=== PATIENT | male | born 2000 | race Caucasian/White ===

== ENCOUNTER 2022-03-16 10:47 | Emergency (ER) | payer OTHER, SELFPAY ==
[2022-03-16 11:05] VITALS: BP 137/86; PULSE 113; RESP 18; TEMP 36.6; O2SAT 98; BMI 19.2
[2022-03-16] MEDS: Ibuprofen 600 MG TABLET PO (11:10)
== END 2022-03-16 16:36 | disposition left against medical advice (07) ==
PROVIDERS: Emergency Provider Emergency Medicine; PCP Pediatrics
DX: M54.50 Low back pain, unspecified (principal); J45.909 Unspecified asthma, uncomplicated
CPT/HCPCS: 99282; 99283

== ENCOUNTER 2022-10-09 11:30 | Emergency (ER) | payer OTHER, SELFPAY ==
--- NOTE | ~2022-10-09 | XR_ITS ---
EXAMINATION: XR CHEST CLINICAL INFORMATION: Cough. COMPARISON: 12/20/2012 chest radiographs. TECHNIQUE: 2 views of the chest were obtained. FINDINGS: No significant abnormality is noted involving the heart, lungs, mediastinum, bony thorax or soft tissues. XR/XR chest 2V IMPRESSION: No acute cardiopulmonary process.
[2022-10-09 11:33] VITALS: BP 120/62; PULSE 112; RESP 20; TEMP 36.6; O2SAT 94; BMI 20.7
--- NOTE | 2022-10-09 11:33 | ED.SOB ---
HPI - SOB/Dyspnea General Chief Complaint: Asthma <JOSE Alcala - Last Filed: 10/09/22 11:34> Stated Complaint: sob, severe asthma <JOSE Alcala - Last Filed: 10/09/22 11:34> Time Seen by Provider: 10/09/22 11:39 <JOSE Alcala - Last Filed: 10/09/22 11:34> Source: patient <JOSE Jordan Last Filed: 10/09/22 15:54> Mode of arrival: ambulatory <JOSE Jordan - Last Filed: 10/09/22 15:54> Limitations: no limitations <JOSE Jordan Last Filed: 10/09/22 15:54> History of Present Illness HPI Narrative: Patient is a 22 year old assigned male at with a history of asthma presenting to the emergency department today with a cough and feeling generally unwell. Patient states that he has been feeling unwell over the last few days and has been coughing a lot more. Patient denies any dizziness, lightheadedness, abdominal pain, fever, chills, blurry vision, double vision, loss of vision, chest pain, difficulty breathing, shortness of breath, back pain, night sweats, pain with urination, increased urinary frequency, increased urinary urgency, blood in his urine or stool, syncope or a near syncopal episode, recent trauma or falls, bowel incontinence, bladder incontinence, bowel retention, bladder retention, or any other complaints at this time. Patient states that he has been nauseous. <JOSE Jordan - Last Filed: 10/09/22 15:54> Pertinent past history: asthma <JOSE Jordan - Last Filed: 10/09/22 15:54> Onset (ago): day(s) <JOSE Jordan - Last Filed: 10/09/22 15:54> Context: recent illness <JOSE Jordan Last Filed: 10/09/22 15:54> Exacerbating factors: nothing <JOSE Jordan Last Filed: 10/09/22 15:54> Relieving factors: nothing <JOSE Jordan Last Filed: 10/09/22 15:54> Known history of: asthma <JOSE Jordan Last Filed: 10/09/22 15:54> Associated symptoms: nausea/vomiting <JOSE Jordan Last Filed: 10/09/22 15:54> Treatment prior to arrival: bronchodilator <JOSE Jordan Last Filed: 10/09/22 15:54> Related Data Home oxygen amount: none <JOSE Jordan Last Filed: 10/09/22 15:54> Home Medications: Previous Rx's Medication Instructions Recorded ondansetron 4 mg disintegrating 4 mg PO Q8H 3 days #9 tabs 10/09/22 tablet prednisone 20 mg tablet 20 mg PO DAILY 7 days #7 tabs 10/09/22 <JOSE Alcala - Last Filed: 10/09/22 11:34> Allergies/Adverse Reactions: Allergies Allergy/AdvReac Type Severity Reaction Status Date / Time No Known Allergies Allergy Unverified 04/18/20 17:17 <JOSE Alcala - Last Filed: 10/09/22 11:34> Review of Systems Constitutional: Constitutional: Reports no additional constitutional complaints, Denies chills, Denies fever(s) and Denies night sweats <JOSE Jordan Last Filed: 10/09/22 15:54> Eyes: Eyes: Reports no additional eye complaints, Denies blurry vision, Denies change in vision, Denies diplopia, Denies eye discharge, Denies loss of vision and Denies eye pain <JOSE Jordan Last Filed: 10/09/22 15:54> ENT: Denies dizziness <JOSE Jordan Last Filed: 10/09/22 15:54> Cardiovascular: Cardiovascular: Reports no additional cardiovascular complaints, Denies chest pain, Denies lightheadedness, Denies Loss of Consciousness and Denies dyspnea <JOSE Jordan Last Filed: 10/09/22 15:54> Respiratory: Respiratory: Reports no additional respiratory complaints, Reports cough, Denies dyspnea and Reports wheezing <JOSE Jordan Last Filed: 10/09/22 15:54> Gastrointestinal: Gastrointestinal: Reports no additional gastrointestinal complaints, Denies abdominal pain, Denies melena, Denies hematochezia, Denies change in bowel habits, Denies change in stool character, Reports nausea and Reports vomiting <JOSE Jordan - Last Filed: 10/09/22 15:54> Genitourinary: Genitourinary: Reports no additional male genitourinary complaints, Denies hematuria, Denies oliguria, Denies difficulty urinating, Denies dysuria, Denies urinary frequency, Denies urinary hesitancy, Denies urinary incontinence and Denies urinary urgency <JOSE Jordan - Last Filed: 10/09/22 15:54> Musculoskeletal: Musculoskeletal: Reports no additional musculoskeletal complaints, Denies numbness and Denies tingling <JOSE Jordan - Last Filed: 10/09/22 15:54> Neurologic: Denies dizziness, Denies loss of vision, Denies numbness and Denies tingling <JOSE Jordan - Last Filed: 10/09/22 15:54> Psychiatric: Psychiatric: Reports no additional psychiatric complaints <JOSE Jordan Last Filed: 10/09/22 15:54> Endocrine: Endocrine: Reports no additional endocrine complaints <JOSE Jordan - Last Filed: 10/09/22 15:54> Hematologic/Lymphatic: Hematologic/Lymphatic: Reports no additional hematologic/lymphatic complaints <JOSE Jordan Last Filed: 10/09/22 15:54> Allergic/Immunologic: Allergic/Immunologic: Reports no additional allergic/immunologic complaints and Reports wheezing <JOSE Jordan Last Filed: 10/09/22 15:54> [facility] Past Medical History Attestation statement: The following information was validated with the patient. <JOSE Jordan Last Filed: 10/09/22 15:54> Source: old records reviewed and nursing notes reviewed <JOSE Jordan Last Filed: 10/09/22 15:54> Physical Exam Vital Signs: Vital Signs: Last Vital Signs Temp 98.6 F 10/09/22 12:52 Pulse 114 H 10/09/22 14:24 Resp 15 10/09/22 14:24 BP 120/62 10/09/22 11:33 Pulse Ox 92 10/09/22 14:06 O2 Del Method 10/09/22 14:06 BMI result Body Mass Index 20.7 <JOSE Alcala - Last Filed: 10/09/22 11:34> Vital Signs: Last Vital Signs Temp 98.6 F 10/09/22 12:52 Pulse 114 H 10/09/22 14:24 Resp 15 10/09/22 14:24 BP 120/62 10/09/22 11:33 Pulse Ox 92 10/09/22 14:06 O2 Del Method 10/09/22 14:06 BMI result Body Mass Index 20.7 <JOSE Jordan - Last Filed: 10/09/22 15:54> Const: General: cooperative, no acute distress, alert and awake <JOSE Jordan - Last Filed: 10/09/22 15:54> Nutritional Appearance: well nourished <JOSE Jordan - Last Filed: 10/09/22 15:54> Orientation/consciousness: patient oriented x3 <JOSE Jordan - Last Filed: 10/09/22 15:54> Limitations: no limitations <JOSE Jordan - Last Filed: 10/09/22 15:54> HEENT: Head: Yes normal to inspection and Yes atraumatic <JOSE Jordan - Last Filed: 10/09/22 15:54> Ears: hearing grossly normal bilaterally and external ears normal <JOSE Jordan - Last Filed: 10/09/22 15:54> General nose exam: Normal external nose present, no nasal discharge noted and no epistaxis <JOSE Jordan - Last Filed: 10/09/22 15:54> Face and sinus: Yes normal facial exam, No abrasion and No laceration <JOSE Jordan - Last Filed: 10/09/22 15:54> Mouth: Normal oral and palatal mucosa present, no drooling and no muffled voice <JOSE Jordan - Last Filed: 10/09/22 15:54> Eyes: General: appearance normal, both eyes and all related structures <JOSE Jordan - Last Filed: 10/09/22 15:54> Periorbital: periorbital findings normal <JOSE Jordan - Last Filed: 10/09/22 15:54> Eyelids: Yes eyelids normal <JOSE Jordan - Last Filed: 10/09/22 15:54> Conjunctivae: conjunctivae normal <Charline Castaneda NH - Last Filed: 10/09/22 15:54> Pupils: Equal, round and reactive pupils present <Charline Castaneda NH - Last Filed: 10/09/22 15:54> EOM: EOMs intact bilaterally <Charline Castaneda NH - Last Filed: 10/09/22 15:54> Neck: Neck: Yes normal visual inspection, Yes full ROM and Yes no lymphadenopathy <Charline Castaneda NH - Last Filed: 10/09/22 15:54> Chest: Chest palpation & inspection: normal inspection of the chest <Charline Castaneda NH - Last Filed: 10/09/22 15:54> Resp: Effort & Inspection: normal respiratory effort and able to speak in complete sentences <Charline Castaneda NH - Last Filed: 10/09/22 15:54> Auscultation: wheezes throughout <Charline Castaneda NH - Last Filed: 10/09/22 15:54> Cardio: Rate: tachycardic <Charline Castaneda NH - Last Filed: 10/09/22 15:54> Rhythm: regular rhythm <Charline Castaneda NH - Last Filed: 10/09/22 15:54> GI: Inspection: Yes normal to inspection <Charline Castaneda NH - Last Filed: 10/09/22 15:54> Palpation (GI): Soft to palpation, not firm, nontender, no guarding and not rigid <Charline Castaneda NH - Last Filed: 10/09/22 15:54> Neuro: General: patient oriented x3 and moves all extremities <Charline Castaneda NH - Last Filed: 10/09/22 15:54> Cranial nerves: Yes Equal, round and reactive pupils present <Charline Castaneda NH - Last Filed: 10/09/22 15:54> Cognition (Neuro): normal cognition <Charline Castaneda NH - Last Filed: 10/09/22 15:54> Motor exam (neuro): 5/5 motor strength present throughout <Charline Castaneda NH - Last Filed: 10/09/22 15:54> Sensory Exam: Normal double simultaneous stimulation for sensation <CharlineJOSE Thompson - Last Filed: 10/09/22 15:54> Coordination: [id number] test normal <JOSE Jordan - Last Filed: 10/09/22 15:54> Extrem: General: Yes normal to inspection, Yes full ROM and Yes capillary refill normal <JOSE Jordan - Last Filed: 10/09/22 15:54> Psych: Appearance: grossly normal <JOSE Jordan - Last Filed: 10/09/22 15:54> Mental Status: mental status grossly normal <JOSE Jordan - Last Filed: 10/09/22 15:54> Affect: normal affect <JOSE Jordan - Last Filed: 10/09/22 15:54> Attitude: cooperative <JOSE Jordan - Last Filed: 10/09/22 15:54> Thought process: Normal thought process present <JOSE Jordan - Last Filed: 10/09/22 15:54> Thought content: Normal thought content present <JOSE Jordan - Last Filed: 10/09/22 15:54> Insight: Good insight present (Psych) <JOSE Jordan - Last Filed: 10/09/22 15:54> Course Course Course Narrative: RME - 22 yo M, with a history of asthma, presenting to the ER with complaints of shortness of breath since yesterday. He is a smoker. He has been using his inhalers and nebulizers at home without relief. He has been admitted in the hospital for his asthma in the past. Inspiratory wheezes but speaking in full sentences. 94% on RA. Plan - Chest x-ray and covid swab ordered. <JOSE Alcala - Last Filed: 10/09/22 11:34> Medications Administered Discontinued Medications Generic Name Dose Route Start Last Admin Trade Name Freq PRN Reason Stop Dose Admin Albuterol Sulfate 10 mg 10/09/22 11:39 10/09/22 11:51 Albuterol Sulfate (0.083%) 2.5 Mg/3 Ml Vial.Neb INHALE 10/09/22 11:40 10 mg ONCE ONE Administration Albuterol Sulfate 5 mg/ 0 mg 10/09/22 14:08 10/09/22 14:24 Ipratropium [place] 0.5 mg INHALE 10/09/22 14:09 5 each ONCE ONE Administration Sodium Chloride 1,000 mls @ 999 mls/hr 10/09/22 13:00 10/09/22 14:56 Ns IV 10/09/22 14:00 Infused .Q1H1M DOMITILA Infusion Methylprednisolone Sodium Succinate 60 mg 10/09/22 11:39 10/09/22 11:44 Methylprednisolone Sod Succ 125 Mg/2 Ml Vial IM 10/09/22 11:40 60 mg ONCE ONE Administration Ondansetron HCl 4 mg 10/09/22 14:41 10/09/22 14:56 Ondansetron Hcl 4 Mg/2 Ml Vial IVPUSH 10/09/22 14:42 4 mg ONCE ONE Administration <JOSE Alcala - Last Filed: 10/09/22 11:34> Medications Administered Discontinued Medications Generic Name Dose Route Start Last Admin Trade Name Freq PRN Reason Stop Dose Admin Albuterol Sulfate 10 mg 10/09/22 11:39 10/09/22 11:51 Albuterol Sulfate (0.083%) 2.5 Mg/3 Ml Vial.Neb INHALE 10/09/22 11:40 10 mg ONCE ONE Administration Albuterol Sulfate 5 mg/ 0 mg 10/09/22 14:08 10/09/22 14:24 Ipratropium [place] 0.5 mg INHALE 10/09/22 14:09 5 each ONCE ONE Administration Sodium Chloride 1,000 mls @ 999 mls/hr 10/09/22 13:00 10/09/22 14:56 Ns IV 10/09/22 14:00 Infused .Q1H1M DOMITILA Infusion Methylprednisolone Sodium Succinate 60 mg 10/09/22 11:39 10/09/22 11:44 Methylprednisolone Sod Succ 125 Mg/2 Ml Vial IM 10/09/22 11:40 60 mg ONCE ONE Administration Ondansetron HCl 4 mg 10/09/22 14:41 10/09/22 14:56 Ondansetron Hcl 4 Mg/2 Ml Vial IVPUSH 10/09/22 14:42 4 mg ONCE ONE Administration <JOSE Jordan - Last Filed: 10/09/22 15:54> Medical Decision Making Medical Decision Making MDM Narrative: Patient is a 22 year old assigned male at with a history of asthma presenting to the emergency department today with a cough and nausea. Patient's physical exam showed tachycardia which is likely secondary to the patient using breathing treatments at home. Patient's blood work showed a slightly elevated WBC count of 12.1. Patient was positive for Rhinovirus. Patient's EKG was unremarkable. Patient's chest x-ray showed no acute process. I explained my physical exam findings as well as all test results to the patient. I answered all questions asked by the patient. Patient received IV fluids, zofran, IM Solu-medrol, and 2 breathing treatments which he stated helped his symptoms significantly. I stressed the importance of the patient taking his medication as prescribed. I stressed the importance of the patient following up with his primary care provider. I stressed the importance of the patient returning to the emergency department immediately if his symptoms were to worsen or if he were to develop any dizziness, shortness of breath, difficulty breathing, chest pain, blurry vision, loss of vision, nausea, vomiting, abdominal pain, fever, chills, back pain, or any other complaints. Patient verbalized agreement and understanding with this treatment plan and discharge. <JOSE Jordan - Last Filed: 10/09/22 15:54> Differential Diagnosis Differential Diagnoses: The differential diagnosis associated with the presentation includes <JOSE Jordan - Last Filed: 10/09/22 15:54> asthma exacerbation, rhinovirus <JOSE Jordan - Last Filed: 10/09/22 15:54> Lab Data MDM Lab Attestation statement: I reviewed the patient's lab results. <JOSE Jordan - Last Filed: 10/09/22 15:54> Result Diagrams: 10/09/22 13:28 10/09/22 13:28 <JOSE Alcala - Last Filed: 10/09/22 11:34> Labs: Lab Results 10/09/22 10/09/22 10/09/22 Range/Units 11:42 13:01 13:28 WBC 12.1 H (4.8-10.8) X10*3/uL RBC 5.14 (4.60-5.80) X10*6/uL Hgb 15.8 (14.0-18.0) g/dl Hct 44.7 (42.0-52.0) % MCV 87.0 (80.0-98.0) fL MCH 30.7 (27.0-33.0) pg MCHC 35.3 (31.0-36.0) g/dl RDW 12.6 (11.0-16.0) % Plt Count 235 (160-400) X10*3/uL MPV 11.2 (9.4-12.4) fL Immature Gran % (Auto) 0.4 (0.0-0.4) % Neut % (Auto) 88.8 H (45-73) % Lymph % (Auto) 5.9 L (20-40) % Lewis % (Auto) 3.2 (2-11) % Eos % (Auto) 1.4 (0-4) % Baso % (Auto) 0.3 (0-2) % Lymph # (Auto) 0.7 L (1.2-4.9) X10*3/uL Lewis # (Auto) 0.4 (0.1-1.2) X10*3/uL Eos # (Auto) 0.2 (0.0-0.4) X10*3/uL Baso # (Auto) 0.0 (0.0-0.2) X10*3/uL Abs Immat Gran (auto) 0.05 H (0.00-0.03) X10*3/uL Absolute Neuts (auto) 10.8 H (2.0-8.3) x10*3/uL Absolute Nucleated RBC 0.000 (0.0-0.012) X10*3/uL Nucleated RBC % (auto) 0.0 (0.0-0.2) /100WBC D-Dimer High Sensitivty NG/ML Sodium (135-145) mmol/L Potassium (3.3-5.1) mmol/L Chloride (96-108) mmol/L Carbon Dioxide (22-29) mmol/L Anion Gap (12-20) BUN (9-16) mg/dL Creatinine (0.5-1.4) mg/dL Estim Creat Clear Calc Estimated GFR Random Glucose (60-115) mg/dL Calcium (8.4-10.2) mg/dL Magnesium (1.6-2.6) mg/dL Total Bilirubin (0.0-1.0) mg/dL AST (5-37) U/L ALT (0-40) U/L Alkaline Phosphatase (39-117) U/L Total Protein (6.5-8.0) g/dL Albumin (3.5-5.0) g/dL Respiratory Panel Schaeffer See Note Adenovirus (Rapid PCR) Not Detected (Not Detect.) B.pert (TEM-PCR) Not Detected (Not Detect.) B.parapertussis DNA PCR Not Detected (Not Detect.) C. pneumoniae DNA (PCR) Not Detected (Not Detect.) Coronavirus OC43 (PCR) Not Detected (Not Detect.) Coronavirus HKU1 (PCR) Not Detected (Not Detect.) Coronavirus 229E (PCR) Not Detected (Not Detect.) COVID-19 (BERNICE) Negative (Negative) COVID-19 Clin Com See Note Coronavirus NL63 (PCR) Not Detected (Not Detect.) Human Metapneumovir PCR Not Detected (Not Detect.) Influenza A (RT-PCR) Not Detected (Not Detect.) Influenza B (RT-PCR) Not Detected (Not Detect.) M. pneumoniae (PCR) Not Detected (Not Detect.) Parainfluenza 1 (PCR) Not Detected (Not Detect.) Parainfluenza 2 (PCR) Not Detected (Not Detect.) Parainfluenza 3 (PCR) Not Detected (Not Detect.) Parainfluenza 4 (PCR) Not Detected (Not Detect.) RSV (PCR) Not Detected (Not Detect.) Entero/Rhino (PCR) Detected A (Not Detect.) SARS-CoV-2 RNA (RT-PCR) Not Detected (Not Detect.) 10/09/22 10/09/22 Range/Units 13:28 13:28 WBC (4.8-10.8) X10*3/uL RBC (4.60-5.80) X10*6/uL Hgb (14.0-18.0) g/dl Hct (42.0-52.0) % MCV (80.0-98.0) fL MCH (27.0-33.0) pg MCHC (31.0-36.0) g/dl RDW (11.0-16.0) % Plt Count (160-400) X10*3/uL MPV (9.4-12.4) fL Immature Gran % (Auto) (0.0-0.4) % Neut % (Auto) (45-73) % Lymph % (Auto) (20-40) % Lewis % (Auto) (2-11) % Eos % (Auto) (0-4) % Baso % (Auto) (0-2) % Lymph # (Auto) (1.2-4.9) X10*3/uL Lewis # (Auto) (0.1-1.2) X10*3/uL Eos # (Auto) (0.0-0.4) X10*3/uL Baso # (Auto) (0.0-0.2) X10*3/uL Abs Immat Gran (auto) (0.00-0.03) X10*3/uL Absolute Neuts (auto) (2.0-8.3) x10*3/uL Absolute Nucleated RBC (0.0-0.012) X10*3/uL Nucleated RBC % (auto) (0.0-0.2) /100WBC D-Dimer High Sensitivty < 150 NG/ML Sodium 143 (135-145) mmol/L Potassium 3.8 (3.3-5.1) mmol/L Chloride 105 (96-108) mmol/L Carbon Dioxide 24 (22-29) mmol/L Anion Gap 18 (12-20) BUN 6 L (9-16) mg/dL Creatinine 0.85 (0.5-1.4) mg/dL Estim Creat Clear Calc 123.4 Estimated GFR > 60 Random Glucose 115 (60-115) mg/dL Calcium 10.2 (8.4-10.2) mg/dL Magnesium 1.7 (1.6-2.6) mg/dL Total Bilirubin 1.3 H (0.0-1.0) mg/dL AST 27 (5-37) U/L ALT 22 (0-40) U/L Alkaline Phosphatase 73 (39-117) U/L Total Protein 7.4 (6.5-8.0) g/dL Albumin 4.9 (3.5-5.0) g/dL Respiratory Panel Schaeffer Adenovirus (Rapid PCR) (Not Detect.) B.pert (TEM-PCR) (Not Detect.) B.parapertussis DNA PCR (Not Detect.) C. pneumoniae DNA (PCR) (Not Detect.) Coronavirus OC43 (PCR) (Not Detect.) Coronavirus HKU1 (PCR) (Not Detect.) Coronavirus 229E (PCR) (Not Detect.) COVID-19 (BERNICE) (Negative) COVID-19 Clin Com Coronavirus NL63 (PCR) (Not Detect.) Human Metapneumovir PCR (Not Detect.) Influenza A (RT-PCR) (Not Detect.) Influenza B (RT-PCR) (Not Detect.) M. pneumoniae (PCR) (Not Detect.) Parainfluenza 1 (PCR) (Not Detect.) Parainfluenza 2 (PCR) (Not Detect.) Parainfluenza 3 (PCR) (Not Detect.) Parainfluenza 4 (PCR) (Not Detect.) RSV (PCR) (Not Detect.) Entero/Rhino (PCR) (Not Detect.) SARS-CoV-2 RNA (RT-PCR) (Not Detect.) <JOSE Alcala - Last Filed: 10/09/22 11:34> Lab Results 10/09/22 10/09/22 10/09/22 Range/Units 11:42 13:01 13:28 WBC 12.1 H (4.8-10.8) X10*3/uL RBC 5.14 (4.60-5.80) X10*6/uL Hgb 15.8 (14.0-18.0) g/dl Hct 44.7 (42.0-52.0) % MCV 87.0 (80.0-98.0) fL MCH 30.7 (27.0-33.0) pg MCHC 35.3 (31.0-36.0) g/dl RDW 12.6 (11.0-16.0) % Plt Count 235 (160-400) X10*3/uL MPV 11.2 (9.4-12.4) fL Immature Gran % (Auto) 0.4 (0.0-0.4) % Neut % (Auto) 88.8 H (45-73) % Lymph % (Auto) 5.9 L (20-40) % Lewis % (Auto) 3.2 (2-11) % Eos % (Auto) 1.4 (0-4) % Baso % (Auto) 0.3 (0-2) % Lymph # (Auto) 0.7 L (1.2-4.9) X10*3/uL Lewis # (Auto) 0.4 (0.1-1.2) X10*3/uL Eos # (Auto) 0.2 (0.0-0.4) X10*3/uL Baso # (Auto) 0.0 (0.0-0.2) X10*3/uL Abs Immat Gran (auto) 0.05 H (0.00-0.03) X10*3/uL Absolute Neuts (auto) 10.8 H (2.0-8.3) x10*3/uL Absolute Nucleated RBC 0.000 (0.0-0.012) X10*3/uL Nucleated RBC % (auto) 0.0 (0.0-0.2) /100WBC D-Dimer High Sensitivty NG/ML Sodium (135-145) mmol/L Potassium (3.3-5.1) mmol/L Chloride (96-108) mmol/L Carbon Dioxide (22-29) mmol/L Anion Gap (12-20) BUN (9-16) mg/dL Creatinine (0.5-1.4) mg/dL Estim Creat Clear Calc Estimated GFR Random Glucose (60-115) mg/dL Calcium (8.4-10.2) mg/dL Magnesium (1.6-2.6) mg/dL Total Bilirubin (0.0-1.0) mg/dL AST (5-37) U/L ALT (0-40) U/L Alkaline Phosphatase (39-117) U/L Total Protein (6.5-8.0) g/dL Albumin (3.5-5.0) g/dL Respiratory Panel Schaeffer See Note Adenovirus (Rapid PCR) Not Detected (Not Detect.) B.pert (TEM-PCR) Not Detected (Not Detect.) B.parapertussis DNA PCR Not Detected (Not Detect.) C. pneumoniae DNA (PCR) Not Detected (Not Detect.) Coronavirus OC43 (PCR) Not Detected (Not Detect.) Coronavirus HKU1 (PCR) Not Detected (Not Detect.) Coronavirus 229E (PCR) Not Detected (Not Detect.) COVID-19 (BERNICE) Negative (Negative) COVID-19 Clin Com See Note Coronavirus NL63 (PCR) Not Detected (Not Detect.) Human Metapneumovir PCR Not Detected (Not Detect.) Influenza A (RT-PCR) Not Detected (Not Detect.) Influenza B (RT-PCR) Not Detected (Not Detect.) M. pneumoniae (PCR) Not Detected (Not Detect.) Parainfluenza 1 (PCR) Not Detected (Not Detect.) Parainfluenza 2 (PCR) Not Detected (Not Detect.) Parainfluenza 3 (PCR) Not Detected (Not Detect.) Parainfluenza 4 (PCR) Not Detected (Not Detect.) RSV (PCR) Not Detected (Not Detect.) Entero/Rhino (PCR) Detected A (Not Detect.) SARS-CoV-2 RNA (RT-PCR) Not Detected (Not Detect.) 10/09/22 10/09/22 Range/Units 13:28 13:28 WBC (4.8-10.8) X10*3/uL RBC (4.60-5.80) X10*6/uL Hgb (14.0-18.0) g/dl Hct (42.0-52.0) % MCV (80.0-98.0) fL MCH (27.0-33.0) pg MCHC (31.0-36.0) g/dl RDW (11.0-16.0) % Plt Count (160-400) X10*3/uL MPV (9.4-12.4) fL Immature Gran % (Auto) (0.0-0.4) % Neut % (Auto) (45-73) % Lymph % (Auto) (20-40) % Lewis % (Auto) (2-11) % Eos % (Auto) (0-4) % Baso % (Auto) (0-2) % Lymph # (Auto) (1.2-4.9) X10*3/uL Lewis # (Auto) (0.1-1.2) X10*3/uL Eos # (Auto) (0.0-0.4) X10*3/uL Baso # (Auto) (0.0-0.2) X10*3/uL Abs Immat Gran (auto) (0.00-0.03) X10*3/uL Absolute Neuts (auto) (2.0-8.3) x10*3/uL Absolute Nucleated RBC (0.0-0.012) X10*3/uL Nucleated RBC % (auto) (0.0-0.2) /100WBC D-Dimer High Sensitivty < 150 NG/ML Sodium 143 (135-145) mmol/L Potassium 3.8 (3.3-5.1) mmol/L Chloride 105 (96-108) mmol/L Carbon Dioxide 24 (22-29) mmol/L Anion Gap 18 (12-20) BUN 6 L (9-16) mg/dL Creatinine 0.85 (0.5-1.4) mg/dL Estim Creat Clear Calc 123.4 Estimated GFR > 60 Random Glucose 115 (60-115) mg/dL Calcium 10.2 (8.4-10.2) mg/dL Magnesium 1.7 (1.6-2.6) mg/dL Total Bilirubin 1.3 H (0.0-1.0) mg/dL AST 27 (5-37) U/L ALT 22 (0-40) U/L Alkaline Phosphatase 73 (39-117) U/L Total Protein 7.4 (6.5-8.0) g/dL Albumin 4.9 (3.5-5.0) g/dL Respiratory Panel Schaeffer Adenovirus (Rapid PCR) (Not Detect.) B.pert (TEM-PCR) (Not Detect.) B.parapertussis DNA PCR (Not Detect.) C. pneumoniae DNA (PCR) (Not Detect.) Coronavirus OC43 (PCR) (Not Detect.) Coronavirus HKU1 (PCR) (Not Detect.) Coronavirus 229E (PCR) (Not Detect.) COVID-19 (BERNICE) (Negative) COVID-19 Clin Com Coronavirus NL63 (PCR) (Not Detect.) Human Metapneumovir PCR (Not Detect.) Influenza A (RT-PCR) (Not Detect.) Influenza B (RT-PCR) (Not Detect.) M. pneumoniae (PCR) (Not Detect.) Parainfluenza 1 (PCR) (Not Detect.) Parainfluenza 2 (PCR) (Not Detect.) Parainfluenza 3 (PCR) (Not Detect.) Parainfluenza 4 (PCR) (Not Detect.) RSV (PCR) (Not Detect.) Entero/Rhino (PCR) (Not Detect.) SARS-CoV-2 RNA (RT-PCR) (Not Detect.) <JOSE Jordan Filed: 10/09/22 15:54> Independent Interpretation I performed an independent interpretation of an: EKG <JOSE Jordan Last Filed: 10/09/22 15:54> Interpretation: Vent. Rate: 117 BPM ? ? Atrial Rate: 117 BPM P-R Int: 128 ms? QRS Dur: 078 ms QT Int: 318 ms ? ? ? P-R-T Axes: 072 077 -67 degrees QTc Int: 443 ms ? Sinus tachycardia with occasional Premature ventricular complexes Right atrial enlargement T wave abnormality, consider inferior ischemia Abnormal ECG No previous ECGs available ? Electronically Signed By:CAL LOPEZ Dictated By: Cal Lopez MD Signed By: Electronically signed by Cal Lopez MD 10/09/22 1444 <JOSE Jordan Filed: 10/09/22 15:54> Radiology Impression Radiologist Impression: My interpretation is in agreement with the radiologist's impression of this imaging study. EXAMINATION: XR CHEST CLINICAL INFORMATION: Cough. COMPARISON: 12/20/2012 chest radiographs. TECHNIQUE: 2 views of the chest were obtained. FINDINGS: No significant abnormality is noted involving the heart, lungs, mediastinum, bony thorax or soft tissues. XR/XR chest 2V IMPRESSION: No acute cardiopulmonary process. Dictated By: Efrain Tidwell MD Signed By: Electronically signed by Efrain Tidwell MD 10/09/22 1324 <JOSE Jordan - Last Filed: 10/09/22 15:54> Critical Care Time Critical Care Time Critical Care Time: Yes <JOSE Jordan - Last Filed: 10/09/22 15:54> Total Critical Care Time: 30 <JOSE Jordan - Last Filed: 10/09/22 15:54> Attestation: I spent 30 minutes of Critical Care Time with this patient. This does not include time spent on separately reported billable procedures. <JOSE Jordan - Last Filed: 10/09/22 15:54> Discharge Plan Discharge Clinical Impression: Asthma with acute exacerbation, Rhinovirus <JOSE Alcala - Last Filed: 10/09/22 11:34> Patient Disposition: Home, Self-Care <JOSE Alcala - Last Filed: 10/09/22 11:34> Instructions: Asthma (ED) <JOSE Alcala - Last Filed: 10/09/22 11:34> Additional Instructions: Follow up with your primary care provider. Return to the emergency department immediately if your symptoms worsen or if you develop any dizziness, shortness of breath, difficulty breathing, chest pain, blurry vision, loss of vision, nausea, vomiting, abdominal pain, fever, chills, back pain, or any other complaints. <JOSE Alcala - Last Filed: 10/09/22 11:34> Prescriptions: New prednisone 20 mg tablet 20 mg PO DAILY 7 Days Qty: 7 0RF ondansetron 4 mg tablet,disintegrating 4 mg PO Q8H 3 Days Qty: 9 0RF <JOSE Alcala - Last Filed: 10/09/22 11:34> [place] [facility]] (Call to establish and follow up with a primary care provider. If you already have a primary care provider, please follow up with them. ) [facility] [facility] [place]Provider Group[place] (Call to establish and follow up with a primary care provider. If you already have a primary care provider, please follow up with them. ) [facility] [facility] [place]Provider Group] (Call to establish and follow up with a primary care provider. If you already have a primary care provider, please follow up with them. ) <JOSE Alcala - Last Filed: 10/09/22 11:34> Stand Alone Forms: Work/School Release <JOSE Alcala - Last Filed: 10/09/22 11:34> Interventions: ED Discharge Assessment Last Done: 10/09/22 15:25 <JOSE Alcala - Last Filed: 10/09/22 11:34> Discharge Date/Time: 10/09/22 15:26 <JOSE Alcala - Last Filed: 10/09/22 11:34> Print Language: Syriac <JOSE Alcala - Last Filed: 10/09/22 11:34>
[2022-10-09] MEDS: methylPREDNISolone Sod Succ 125 MG/2 ML VIAL 60 MG IM (11:44)
[2022-10-09] MEDS: Albuterol Sulfate (0.083%) 2.5 MG/3 ML VIAL.NEB 10 MG INHALE (11:51)
[2022-10-09 11:53] VITALS: PULSE 104; RESP 18; O2SAT 96
[2022-10-09 12:06] LABS: COVID-19 Test Negative (Negative); IDNOW Serial# BCCEAD1C
[2022-10-09 12:52] VITALS: TEMP 37
--- NOTE | 2022-10-09 12:52 | ECG_ITS ---
Test Reason : sob Blood Pressure : / mmHG Vent. Rate : 117 BPM Atrial Rate : 117 BPM P-R Int : 128 ms QRS Dur : 078 ms QT Int : 318 ms P-R-T Axes : 072 077 -67 degrees QTc Int : 443 ms Sinus tachycardia with occasional Premature ventricular complexes Right atrial enlargement T wave abnormality, consider inferior ischemia Abnormal ECG No previous ECGs available Referred By: Charline Castaneda Electronically Signed By:AGUSTÍN LOPEZ
[2022-10-09] MEDS: 0.9 % Sodium Chloride 1,000 ML 999 ML IV (13:29)
[2022-10-09 13:45] LABS: Basophils Percent Auto 0.3 % (0-2); Eosinophils Absolute Auto 0.2 X10*3/uL (0.0-0.4); Eosinophils Percent Auto 1.4 % (0-4); Hematocrit 44.7 % (42.0-52.0); Hemoglobin 15.8 g/dl (14.0-18.0); Imm Gran Abs Auto 0.05 X10*3/uL (0.00-0.03); Imm Gran Pct Auto 0.4 % (0.0-0.4); Lymphocytes Absolute Auto 0.7 X10*3/uL (1.2-4.9); Lymphocytes Percent Auto 5.9 % (20-40); MANUAL DIFF FLAG NO; Mean Corpuscular HGB Conc 35.3 g/dl (31.0-36.0); Mean Corpuscular Hemoglobin 30.7 pg (27.0-33.0); Mean Platelet Volume 11.2 fL (9.4-12.4); Monocytes Absolute Auto 0.4 X10*3/uL (0.1-1.2); Monocytes Percent Auto 3.2 % (2-11); Neutrophils Absolute Auto 10.8 x10*3/uL (2.0-8.3); Neutrophils Percent Auto 88.8 % (45-73); Platelet Count 235 X10*3/uL (160-400); Red Blood Count 5.14 X10*6/uL (4.60-5.80); Red Cell Distribution Width 12.6 % (11.0-16.0); White Blood Count 12.1 X10*3/uL (4.8-10.8)
[2022-10-09 14:04] LABS: D Dimer High Sensitivity < 150 NG/ML
[2022-10-09 14:06] VITALS: PULSE 116; RESP 20; O2SAT 92
[2022-10-09 14:09] LABS: Alanine Aminotransferase 22 U/L (0-40); Albumin Level 4.9 g/dL (3.5-5.0); Alkaline Phosphatase 73 U/L (39-117); Anion Gap 18 (12-20); Aspartate Amino Transferase 27 U/L (5-37); Bilirubin Total 1.3 mg/dL (0.0-1.0); Blood Urea Nitrogen 6 mg/dL (9-16); Calcium 10.2 mg/dL (8.4-10.2); Carbon Dioxide 24 mmol/L (22-29); Chloride 105 mmol/L (96-108); Creatinine Clr Calc Pharmacy 123.4; Estimated Glomerular Filt Rate > 60; Glucose Random 115 mg/dL (60-115); Magnesium 1.7 mg/dL (1.6-2.6); Potassium 3.8 mmol/L (3.3-5.1); Sodium 143 mmol/L (135-145); Total Protein 7.4 g/dL (6.5-8.0)
[2022-10-09 14:24] VITALS: PULSE 114; RESP 15; O2SAT 95
[2022-10-09 14:33] LABS: Rhino/Enterovirus PCR Detected (Not Detect.)
[2022-10-09 14:34] LABS: Adenovirus PCR Not Detected (Not Detect.); Bordetella parapertussis PCR Not Detected (Not Detect.); Bordetella pertussis PCR Not Detected (Not Detect.); Chlamydia pneumoniae PCR Not Detected (Not Detect.); Coronavirus 229E PCR Not Detected (Not Detect.); Coronavirus HKU1 PCR Not Detected (Not Detect.); Coronavirus NL63 PCR Not Detected (Not Detect.); Coronavirus OC43 PCR Not Detected (Not Detect.); Human metapneumovirus PCR Not Detected (Not Detect.); Influenza A PCR Not Detected (Not Detect.); Influenza B PCR Not Detected (Not Detect.); Mycoplasma pneumoniae PCR Not Detected (Not Detect.); Parainfluenza 1 PCR Not Detected (Not Detect.); Parainfluenza 2 PCR Not Detected (Not Detect.); Parainfluenza 3 PCR Not Detected (Not Detect.); Parainfluenza 4 PCR Not Detected (Not Detect.); RSV PCR Not Detected (Not Detect.); SARS-CoV-2 PCR Not Detected (Not Detect.)
[2022-10-09] MEDS: ondansetron HCL 4 MG/2 ML VIAL IVPUSH (14:56)
== END 2022-10-09 15:26 | disposition home or self-care (01) ==
PROVIDERS: Physician Assistant; Physician Assistant Medical; Emergency Provider Emergency Medicine
DX: J45.901 Unspecified asthma with (acute) exacerbation (principal); B34.8 Other viral infections of unspecified site; Z20.822 Contact with and (suspected) exposure to COVID-19
CPT/HCPCS: 36415; 71046; 80053; 83735; 85025; 85379; 87633; 87635; 93005; 94640; 96361; 96372; 96374; 99284; J2405; J2930

== ENCOUNTER 2022-11-09 21:21 | Emergency (ER) | payer MEDICAID, SELFPAY ==
--- NOTE | ~2022-11-09 | XR_ITS ---
EXAMINATION: XR CHEST CLINICAL INFORMATION: Asthma COMPARISON: 10/09/2022 TECHNIQUE: Frontal view of the chest was obtained. FINDINGS: Again seen is peribronchial thickening. No infiltrates, effusions, lung masses or pneumothorax is seen. XR/XR chest 1V IMPRESSION: Peribronchial thickening. No acute intrathoracic disease.
[2022-11-09 21:40] VITALS: BP 112/74; PULSE 114; RESP 20; TEMP 37.9; O2SAT 95; BMI 19.2
[2022-11-09 22:11] LABS: COVID-19 Test Negative (Negative); IDNOW Serial# 55D5AD1C; IDNOW Serial# 6674DD1D; Influenza A Negative (Negative); Influenza B2 Negative (Negative)
[2022-11-09 22:13] VITALS: PULSE 111; RESP 22; TEMP 38.1; O2SAT 95
--- NOTE | 2022-11-09 22:16 | MHC.EDTECH ---
THIS PCT JUST ASSUMED CARE OF PT ,PT WAS HOOKED UP TO [employer] ,VITALS SIGN TAKEN ,TIARA CRABTREE IS AWARE OF PT HIGH TEMP ,HIGH RESP AND HIGH HR .
[2022-11-09] MEDS: Acetaminophen 325 MG TABLET 650 MG PO (22:23)
[2022-11-09] MEDS: dexAMETHasone 2 MG TABLET 10 MG PO (22:30)
[2022-11-09 22:35] VITALS: PULSE 115; RESP 12; O2SAT 90
--- NOTE | 2022-11-09 23:01 | ED.ASTHMA ---
HPI - Asthma General Chief Complaint: Asthma Stated Complaint: asthma Time Seen by Provider: 11/09/22 22:21 Source: patient Mode of arrival: ambulatory Limitations: no limitations History of Present Illness HPI Narrative: Patient history of asthma was cleaning the garage 2 days ago since yesterday been having increased shortness of breath with wheezing feel tired did not have any medicine for her nebulizer use without much relief also patient been congested noticed to have temperature of 100.6 degrees , no other family members sick Related Data Previous Rx's Medication Instructions Recorded ondansetron 4 mg disintegrating 4 mg PO Q8H 3 days #9 tabs 10/09/22 tablet prednisone 20 mg tablet 20 mg PO DAILY 7 days #7 tabs 10/09/22 albuterol sulfate 2.5 mg/3 mL 2.5 mg (3 mL) inhalation Q4-6H PRN 11/10/22 (0.083 %) solution for nebulization shortness of breath or wheezing #90 mL albuterol sulfate 90 mcg/actuation 2 puff inhalation Q4-6H PRN 11/10/22 aerosol inhaler (ProAir HFA) shortness of breath or wheezing #8.5 grams prednisone 20 mg tablet 40 mg PO DAILY #10 tabs 11/10/22 Allergies Allergy/AdvReac Type Severity Reaction Status Date / Time No Known Allergies Allergy Verified 11/09/22 21:47 Review of Systems Review of Systems: Yes all other systems are reviewed and are negative [facility] Social History Social History Smoked in Last 30 Days: No Use of substances other than those prescribed or required for medical reasons: Yes Substance Use Type: Marijuana Substance Use Frequency: Daily Advance Directives: No Physical Exam Vital Signs: Vital Signs: Last Vital Signs Temp 99.1 F 11/09/22 23:50 Pulse 113 H 11/10/22 00:25 Resp 21 H 11/10/22 00:25 BP 102/45 L 11/09/22 23:55 Pulse Ox 96 11/09/22 23:50 O2 Del Method Room Air 11/09/22 23:50 BMI result Body Mass Index 19.2 Appearance: Alert. Oriented X3. No acute distress. Eyes: PERRLA, No Nystagmus ENT: Pharynx normal. Oral Mucosa moist Neck: Normal inspection. Neck supple. CVS: Normal heart rate and rhythm. Pulses normal. Respiratory: More respiratory distress. Equal air entry bilateral, bilateral decreased air entry with wheezing no crackles Abdomen: Soft and nontender. Bowel sounds are present, no mass palpable, no CVA tenderness Skin: Skin warm and dry. Normal skin color. Normal skin turgor. Extremities: No lower extremity edema. No calf tenderness Neuro: Oriented X 3. Medications Administered Discontinued Medications Generic Name Dose Route Start Last Admin Trade Name Ines PRN Reason Stop Dose Admin Acetaminophen 650 mg 11/09/22 22:20 11/09/22 22:23 Acetaminophen 325 Mg Tablet PO 11/09/22 22:21 650 mg ONCE ONE Administration Albuterol Sulfate 5 mg 11/10/22 00:05 11/10/22 00:25 Albuterol Sulfate (0.083%) 2.5 Mg/3 Ml Vial.Neb INHALE 11/10/22 00:06 5 mg ONCE ONE Administration Albuterol Sulfate 7.5 mg/ 0 mg 11/09/22 22:22 11/09/22 22:31 Albuterol/Ipratropium 3 ml INHALE 11/09/22 22:23 1 each ONCE ONE Administration Dexamethasone 10 mg 11/09/22 22:22 11/09/22 22:30 Dexamethasone 2 Mg Tablet PO 11/09/22 22:23 10 mg ONCE ONE Administration Sodium Chloride 1,000 mls @ 999 mls/hr 11/09/22 22:48 11/10/22 00:34 Ns IV 11/09/22 23:48 Infused .Q1H1M ONE Infusion Magnesium Sulfate 2 gm in 50 mls @ 100 mls/hr 11/09/22 22:48 11/10/22 00:34 Magnesium Sulfate/H2o IV 11/09/22 23:17 Infused ONCE ONE Infusion Medical Decision Making Medical Decision Making [facility] Narrative: Patient feeling much better now after nebulizing treatment IV steroids and magnesium, will discharge patient home Lab Data [facility] Lab Attestation statement: I reviewed the patient's lab results. 11/09/22 23:07 11/09/22 23:07 Labs: Lab Results 11/09/22 11/09/22 11/09/22 Range/Units 21:47 21:47 23:07 WBC 9.2 (4.8-10.8) X10*3/uL RBC 4.87 (4.60-5.80) X10*6/uL Hgb 14.4 (14.0-18.0) g/dl Hct 41.7 L (42.0-52.0) % MCV 85.6 (80.0-98.0) fL MCH 29.6 (27.0-33.0) pg MCHC 34.5 (31.0-36.0) g/dl RDW 12.7 (11.0-16.0) % Plt Count 160 D (160-400) X10*3/uL MPV 11.1 (9.4-12.4) fL Immature Gran % (Auto) 0.2 (0.0-0.4) % Neut % (Auto) 70.7 (45-73) % Lymph % (Auto) 15.5 L (20-40) % [place] % (Auto) 7.2 (2-11) % Eos % (Auto) 6.0 H (0-4) % Baso % (Auto) 0.4 (0-2) % Lymph # (Auto) 1.4 (1.2-4.9) X10*3/uL [place] # (Auto) 0.7 (0.1-1.2) X10*3/uL Eos # (Auto) 0.6 H (0.0-0.4) X10*3/uL Baso # (Auto) 0.0 (0.0-0.2) X10*3/uL Abs Immat Gran (auto) 0.02 (0.00-0.03) X10*3/uL Absolute Neuts (auto) 6.5 (2.0-8.3) x10*3/uL Absolute Nucleated RBC 0.000 (0.0-0.012) X10*3/uL Nucleated RBC % (auto) 0.0 (0.0-0.2) /100WBC Sodium (135-145) mmol/L Potassium (3.3-5.1) mmol/L Chloride (96-108) mmol/L Carbon Dioxide (22-29) mmol/L Anion Gap (12-20) BUN (9-16) mg/dL Creatinine (0.5-1.4) mg/dL Estim Creat Clear Calc Estimated GFR Random Glucose (60-115) mg/dL Calcium (8.4-10.2) mg/dL Total Bilirubin (0.0-1.0) mg/dL AST (5-37) U/L ALT (0-40) U/L Alkaline Phosphatase (39-117) U/L Total Protein (6.5-8.0) g/dL Albumin (3.5-5.0) g/dL COVID-19 (BERNICE) Negative (Negative) COVID-19 Clin Com See Note Influenza Type A (NICOLAS) Negative (Negative) Influenza Type A (PCR) (Negative) Influenza Type B (NICOLAS) Negative (Negative) Influenza Type B (PCR) (Negative) Influenza A & B Note See Note RSV RNA Qual (PCR) (Negative) SARS-CoV-2 RNA (RT-PCR) (Negative) 11/09/22 11/09/22 Range/Units 23:07 23:07 WBC (4.8-10.8) X10*3/uL RBC (4.60-5.80) X10*6/uL Hgb (14.0-18.0) g/dl Hct (42.0-52.0) % MCV (80.0-98.0) fL MCH (27.0-33.0) pg MCHC (31.0-36.0) g/dl RDW (11.0-16.0) % Plt Count (160-400) X10*3/uL MPV (9.4-12.4) fL Immature Gran % (Auto) (0.0-0.4) % Neut % (Auto) (45-73) % Lymph % (Auto) (20-40) % [place] % (Auto) (2-11) % Eos % (Auto) (0-4) % Baso % (Auto) (0-2) % Lymph # (Auto) (1.2-4.9) X10*3/uL [place] # (Auto) (0.1-1.2) X10*3/uL Eos # (Auto) (0.0-0.4) X10*3/uL Baso # (Auto) (0.0-0.2) X10*3/uL Abs Immat Gran (auto) (0.00-0.03) X10*3/uL Absolute Neuts (auto) (2.0-8.3) x10*3/uL Absolute Nucleated RBC (0.0-0.012) X10*3/uL Nucleated RBC % (auto) (0.0-0.2) /100WBC Sodium 142 (135-145) mmol/L Potassium 3.2 L (3.3-5.1) mmol/L Chloride 106 (96-108) mmol/L Carbon Dioxide 24 (22-29) mmol/L Anion Gap 15 (12-20) BUN 7 L (9-16) mg/dL Creatinine 0.84 (0.5-1.4) mg/dL Estim Creat Clear Calc 116.0 Estimated GFR > 60 Random Glucose 156 H (60-115) mg/dL Calcium 9.6 (8.4-10.2) mg/dL Total Bilirubin 0.9 (0.0-1.0) mg/dL AST 28 (5-37) U/L ALT 33 (0-40) U/L Alkaline Phosphatase 61 (39-117) U/L Total Protein 6.8 (6.5-8.0) g/dL Albumin 4.6 (3.5-5.0) g/dL COVID-19 (BERNICE) (Negative) COVID-19 Clin Com Influenza Type A (NICOLAS) (Negative) Influenza Type A (PCR) NEGATIVE (Negative) Influenza Type B (NICOLAS) (Negative) Influenza Type B (PCR) NEGATIVE (Negative) Influenza A & B Note RSV RNA Qual (PCR) NEGATIVE (Negative) SARS-CoV-2 RNA (RT-PCR) NEGATIVE (Negative) Discharge Plan Discharge Clinical Impression: Asthma with acute exacerbation Patient Disposition: Home, Self-Care Instructions: Asthma (ED) Additional Instructions: Use albuterol inhaler/nebulizer treatment every 4 hours as needed Prednisone as prescribed Follow-up with PCP if not better Prescriptions: New albuterol sulfate 2.5 mg /3 mL (0.083 %) solution for nebulization 2.5 mg inhalation Q4-6H PRN (Reason: shortness of breath or wheezing) Qty: 90 0RF prednisone 20 mg tablet 40 mg PO DAILY Qty: 10 0RF albuterol sulfate [ProAir HFA] 90 mcg/actuation HFA aerosol inhaler 2 puff inhalation Q4-6H PRN (Reason: shortness of breath or wheezing) Qty: 8.5 2RF No Action prednisone 20 mg tablet 20 mg PO DAILY 7 Days Qty: 7 0RF ondansetron 4 mg tablet,disintegrating 4 mg PO Q8H 3 Days Qty: 9 0RF Interventions: ED Discharge Assessment Last Done: 11/10/22 01:21 Discharge Date/Time: 11/10/22 01:21
[2022-11-09] MEDS: 0.9 % Sodium Chloride 1,000 ML 999 ML IV (23:13)
[2022-11-09] MEDS: Magnesium Sulfate/H2O 2 GM/50 ML PIGGYBACK IV (23:13)
[2022-11-09 23:15] LABS: MANUAL DIFF FLAG NO
[2022-11-09 23:16] LABS: Basophils Percent Auto 0.4 % (0-2); Eosinophils Absolute Auto 0.6 X10*3/uL (0.0-0.4); Hematocrit 41.7 % (42.0-52.0); Hemoglobin 14.4 g/dl (14.0-18.0); Imm Gran Abs Auto 0.02 X10*3/uL (0.00-0.03); Imm Gran Pct Auto 0.2 % (0.0-0.4); Lymphocytes Absolute Auto 1.4 X10*3/uL (1.2-4.9); Lymphocytes Percent Auto 15.5 % (20-40); Mean Corpuscular HGB Conc 34.5 g/dl (31.0-36.0); Mean Corpuscular Hemoglobin 29.6 pg (27.0-33.0); Mean Corpuscular Volume 85.6 fL (80.0-98.0); Mean Platelet Volume 11.1 fL (9.4-12.4); Monocytes Absolute Auto 0.7 X10*3/uL (0.1-1.2); Monocytes Percent Auto 7.2 % (2-11); Neutrophils Absolute Auto 6.5 x10*3/uL (2.0-8.3); Neutrophils Percent Auto 70.7 % (45-73); Platelet Count 160 X10*3/uL (160-400); Red Blood Count 4.87 X10*6/uL (4.60-5.80); Red Cell Distribution Width 12.7 % (11.0-16.0); White Blood Count 9.2 X10*3/uL (4.8-10.8)
--- NOTE | 2022-11-09 23:23 | PC.NURSE ---
Took over care from TIARA Valdovinos AT 23:00pm, pt a&o, no sign of respiratory distress, pt able to speak in full sentences, breathing treatment completed. medicated per SEP, Iv placed, labs collected and sent. Will continue to monitor.
[2022-11-09 23:30] LABS: Alanine Aminotransferase 33 U/L (0-40); Albumin Level 4.6 g/dL (3.5-5.0); Alkaline Phosphatase 61 U/L (39-117); Anion Gap 15 (12-20); Aspartate Amino Transferase 28 U/L (5-37); Bilirubin Total 0.9 mg/dL (0.0-1.0); Blood Urea Nitrogen 7 mg/dL (9-16); Calcium 9.6 mg/dL (8.4-10.2); Carbon Dioxide 24 mmol/L (22-29); Chloride 106 mmol/L (96-108); Estimated Glomerular Filt Rate > 60; Glucose Random 156 mg/dL (60-115); Potassium 3.2 mmol/L (3.3-5.1); Sodium 142 mmol/L (135-145); Total Protein 6.8 g/dL (6.5-8.0)
[2022-11-09 23:48] LABS: Influenza A PCR NEGATIVE (Negative); Influenza B PCR NEGATIVE (Negative); Resp Syncy Virus RNA Qual PCR NEGATIVE (Negative); SARS COV2 PCR INHOUSE NEGATIVE (Negative)
[2022-11-09 23:50] VITALS: BP 101/47; PULSE 122; RESP 21; TEMP 37.3; O2SAT 96
[2022-11-09 23:55] VITALS: BP 102/45
--- NOTE | 2022-11-10 00:20 | PC.NURSE ---
provider into assess pt, pt is able to speak in full sentences, no sign of respiratory distress. Will medicated per Mar.
[2022-11-10 00:25] VITALS: PULSE 113; RESP 21; O2SAT 95
[2022-11-10] MEDS: Albuterol Sulfate (0.083%) 2.5 MG/3 ML VIAL.NEB 5 MG INHALE (00:25)
--- NOTE | 2022-11-10 00:35 | PC.NURSE ---
second respiratory treatment started.
--- NOTE | 2022-11-10 01:14 | PC.NURSE ---
Reviewed discharge instruction with pt, pt verbalized understanding.
== END 2022-11-10 01:21 | disposition home or self-care (01) ==
PROVIDERS: Emergency Provider Internal Medicine
DX: J45.901 Unspecified asthma with (acute) exacerbation (principal); Z20.822 Contact with and (suspected) exposure to COVID-19; Z20.828 Contact with and (suspected) exposure to other viral communicable diseases; Z79.899 Other long term (current) drug therapy
CPT/HCPCS: 0241U; 71045; 80053; 85025; 87502; 87635; 96365; 99284; 99285; J3475; J8540

== ENCOUNTER 2023-05-22 16:27 | Emergency (ER) | payer MEDICAID, SELFPAY ==
[2023-05-22 16:37] VITALS: BP 138/97; PULSE 94; RESP 18; TEMP 36.8; O2SAT 98; BMI 19.9
--- NOTE | 2023-05-22 16:40 | ED.GENADULT ---
HPI - General Adult General Chief complaint: Nausea/Vomiting/Diarrhea Stated complaint: Weakness, fatigue, no appetite Related Data Previous Rx's Medication Instructions Recorded ondansetron 4 mg disintegrating 4 mg PO Q8H 3 days #9 tabs 10/09/22 tablet prednisone 20 mg tablet 20 mg PO DAILY 7 days #7 tabs 10/09/22 albuterol sulfate 2.5 mg/3 mL 2.5 mg (3 mL) inhalation Q4-6H PRN 11/10/22 (0.083 %) solution for nebulization shortness of breath or wheezing #90 mL albuterol sulfate 90 mcg/actuation 2 puff inhalation Q4-6H PRN 11/10/22 aerosol inhaler (ProAir HFA) shortness of breath or wheezing #8.5 grams prednisone 20 mg tablet 40 mg (2 x 20 mg) PO DAILY #10 tabs 11/10/22 Allergies Allergy/AdvReac Type Severity Reaction Status Date / Time No Known Allergies Allergy Verified 05/22/23 16:42 [facility] Social History Social History Substance Use Type: Marijuana Advance Directives: No Advance Directives Information Provided: Yes Physical Exam ED Vital Signs: Vital Signs - 24 hr 05/22/23 16:37 Temperature 98.2 F Pulse Rate 94 Respiratory Rate 18 Blood Pressure 138/97 H Pulse Oximetry 98 Oxygen Delivery Method Room Air BMI result Body Mass Index 19.9 Course Course Course Narrative: This is a rapid medical exam: Additional HPI, ROS, PE not included below will be deferred to primary provider. Patient is a 23-year-old male presenting to the emergency department with complaint of weakness, lightheadedness, nausea, and vomiting bile for 2 days. 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 Denies fevers. Denies cough or shortness of breath. Denies chest pain. Plan: Swab for flu, Covid, basic labs Medical Decision Making Lab Data 05/22/23 16:54 05/22/23 16:54 Labs: Lab Results 05/22/23 Range/Units 16:54 WBC 7.1 (4.8-10.8) X10*3/uL RBC 5.55 (4.60-5.80) X10*6/uL Hgb 17.0 (14.0-18.0) g/dl Hct 48.6 (42.0-52.0) % MCV 87.6 (80.0-98.0) fL MCH 30.6 (27.0-33.0) pg MCHC 35.0 (31.0-36.0) g/dl RDW 12.7 (11.0-16.0) % Plt Count 194 (160-400) X10*3/uL MPV 10.6 (9.4-12.4) fL Immature Gran % (Auto) 0.1 (0.0-0.4) % Neut % (Auto) 72.0 (45-73) % Lymph % (Auto) 17.3 L (20-40) % [place] % (Auto) 10.1 (2-11) % Eos % (Auto) 0.1 (0-4) % Baso % (Auto) 0.4 (0-2) % Lymph # (Auto) 1.2 (1.2-4.9) X10*3/uL [place] # (Auto) 0.7 (0.1-1.2) X10*3/uL Eos # (Auto) 0.0 (0.0-0.4) X10*3/uL Baso # (Auto) 0.0 (0.0-0.2) X10*3/uL Abs Immat Gran (auto) 0.01 (0.00-0.03) X10*3/uL Absolute Neuts (auto) 5.1 (2.0-8.3) x10*3/uL Absolute Nucleated RBC 0.000 (0.0-0.012) X10*3/uL Nucleated RBC % (auto) 0.0 (0.0-0.2) /100WBC Sodium 134 L (135-145) mmol/L Potassium 4.1 D (3.3-5.1) mmol/L Chloride 101 (96-108) mmol/L Carbon Dioxide 19 L (22-29) mmol/L Anion Gap 18 (12-20) BUN 12 (9-16) mg/dL Creatinine 0.93 (0.5-1.4) mg/dL Estim Creat Clear Calc 107.9 Estimated GFR > 60 Random Glucose 81 (60-115) mg/dL Calcium 10.0 (8.4-10.2) mg/dL COVID-19 (BERNICE) Negative (Negative) COVID-19 Clin Com See Note Influenza Type A (NICOLAS) Negative (Negative) Influenza Type B (NICOLAS) Negative (Negative) Influenza A & B Note See Note Discharge Plan Discharge Clinical Impression: Nausea & vomiting Patient Disposition: Left W/O Completing Treatment Prescriptions: No Action prednisone 20 mg tablet 20 mg PO DAILY 7 Days Qty: 7 0RF ondansetron 4 mg tablet,disintegrating 4 mg PO Q8H 3 Days Qty: 9 0RF albuterol sulfate 2.5 mg /3 mL (0.083 %) solution for nebulization 2.5 mg inhalation Q4-6H PRN (Reason: shortness of breath or wheezing) Qty: 90 0RF prednisone 20 mg tablet 40 mg PO DAILY Qty: 10 0RF albuterol sulfate [ProAir HFA] 90 mcg/actuation HFA aerosol inhaler 2 puff inhalation Q4-6H PRN (Reason: shortness of breath or wheezing) Qty: 8.5 2RF Discharge Date/Time: 05/22/23 19:52
[2023-05-22 16:58] LABS: MANUAL DIFF FLAG NO
[2023-05-22 17:02] LABS: Basophils Percent Auto 0.4 % (0-2); Eosinophils Percent Auto 0.1 % (0-4); Hematocrit 48.6 % (42.0-52.0); Imm Gran Abs Auto 0.01 X10*3/uL (0.00-0.03); Imm Gran Pct Auto 0.1 % (0.0-0.4); Lymphocytes Absolute Auto 1.2 X10*3/uL (1.2-4.9); Lymphocytes Percent Auto 17.3 % (20-40); Mean Corpuscular Hemoglobin 30.6 pg (27.0-33.0); Mean Corpuscular Volume 87.6 fL (80.0-98.0); Mean Platelet Volume 10.6 fL (9.4-12.4); Monocytes Absolute Auto 0.7 X10*3/uL (0.1-1.2); Monocytes Percent Auto 10.1 % (2-11); Neutrophils Absolute Auto 5.1 x10*3/uL (2.0-8.3); Platelet Count 194 X10*3/uL (160-400); Red Blood Count 5.55 X10*6/uL (4.60-5.80); Red Cell Distribution Width 12.7 % (11.0-16.0); White Blood Count 7.1 X10*3/uL (4.8-10.8)
[2023-05-22 17:15] LABS: Anion Gap 18 (12-20); Blood Urea Nitrogen 12 mg/dL (9-16); Carbon Dioxide 19 mmol/L (22-29); Chloride 101 mmol/L (96-108); Creatinine Clr Calc Pharmacy 107.9; Estimated Glomerular Filt Rate > 60; Glucose Random 81 mg/dL (60-115); Potassium 4.1 mmol/L (3.3-5.1); Sodium 134 mmol/L (135-145)
[2023-05-22 17:16] LABS: IDNOW Serial# BCCEAD1C; Influenza A Negative (Negative); Influenza B2 Negative (Negative)
[2023-05-22 17:17] LABS: COVID-19 Test Negative (Negative); IDNOW Serial# 08D9AD1C
== END 2023-05-22 19:52 | disposition left against medical advice (07) ==
PROVIDERS: Registered Nurse Emergency; Emergency Provider Emergency Medicine
DX: R11.2 Nausea with vomiting, unspecified (principal); F12.90 Cannabis use, unspecified, uncomplicated; Z79.899 Other long term (current) drug therapy; Z11.52 Encounter for screening for COVID-19
CPT/HCPCS: 36415; 80048; 85025; 87502; 87635; 99281; 99283

== ENCOUNTER 2023-05-30 11:26 | Emergency (ER) | payer MEDICAID, SELFPAY ==
[2023-05-30 11:29] VITALS: BP 107/56; PULSE 76; RESP 19; TEMP 36.6; O2SAT 99; BMI 19.2
--- NOTE | 2023-05-30 11:54 | ED_ITS ---
HPI - General Adult General Chief complaint: Nausea/Vomiting/Diarrhea Stated complaint: vomiting Time Seen by Provider: 05/30/23 14:43 Source: patient Mode of arrival: ambulatory History of Present Illness HPI narrative: 23-year-old male who presents with nausea and vomiting without diarrhea and states that it primarily occurs in the morning but he is also smoking cannabis in the evenings. Last use of cannabis was last night and patient states he is actually feeling better at this time and that he can eat and drink it just 1st thing in the morning. Related Data Previous Rx's Medication Instructions Recorded ondansetron 4 mg disintegrating 4 mg PO Q8H 3 days #9 tabs 10/09/22 tablet prednisone 20 mg tablet 20 mg PO DAILY 7 days #7 tabs 10/09/22 albuterol sulfate 2.5 mg/3 mL 2.5 mg (3 mL) inhalation Q4-6H PRN 11/10/22 (0.083 %) solution for nebulization shortness of breath or wheezing #90 mL albuterol sulfate 90 mcg/actuation 2 puff inhalation Q4-6H PRN 11/10/22 aerosol inhaler (ProAir HFA) shortness of breath or wheezing #8.5 grams prednisone 20 mg tablet 40 mg (2 x 20 mg) PO DAILY #10 tabs 11/10/22 ondansetron HCl 4 mg tablet 4 mg PO Q8H PRN nausea and 05/30/23 vomiting 4 days #10 tabs Allergies Allergy/AdvReac Type Severity Reaction Status Date / Time No Known Allergies Allergy Verified 05/30/23 11:29 Review of Systems 2 Review of Systems: Pertinent positives and negatives as stated in the [facility] Past Medical History Source: nursing notes reviewed Social History Social History Smoked in Last 30 Days: No Use of substances other than those prescribed or required for medical reasons: Yes Substance Use Type: Marijuana Advance Directives: No Advance Directives Information Provided: Yes Physical Exam ED Vital Signs: Vital Signs - 24 hr 05/30/23 11:29 05/30/23 14:38 Temperature 98 F 98.0 F Pulse Rate 76 63 Respiratory Rate 19 16 Blood Pressure 107/56 L 111/72 Pulse Oximetry 99 100 Oxygen Delivery Method Room Air Room Air BMI result Body Mass Index 19.2 VITAL SIGNS: Reviewed. GENERAL: Well developed, well nourished, in no acute distress. HEAD: Normocephalic/atraumatic EYES: PERRLA, EOMI EARS: Ext canals without abnormality NOSE: Nares patent bilateral OROPHARYNX: no oral lesions noted, posterior pharynx clear NECK: Supple, no adenopathy LUNGS: Normal breath sounds. No adventitious sounds or accessory muscle use. SpO2<100> CARDIOVASCULAR: Regular rate and rhythm without noted murmurs ABDOMEN: Soft, non-tender, non-distended with bowel sounds. MUSCULOSKELETAL: No tenderness, deformities, or effusions noted on gross inspection. EXTREMITIES: No cyanosis, clubbing or edema. SKIN: Inspection of the skin reveals no rashes NEUROLOGIC: Alert and oriented x 4. Strength and sensation to light touch were grossly intact x 4. Course Course Course Narrative: This is an RME: Additional HPI, ROS, PE not included below will be deferred to primary provider. 23 year old male presnts w/ abd pain intermittent in nature X 1 week with nausea and vomiting every morning. Smokes marijuana daily. Plan- labs, urine Medications Administered Discontinued Medications Generic Name Dose Route Start Last Admin Trade Name Freq PRN Reason Stop Dose Admin Diphenhydramine HCl 25 mg 05/30/23 14:44 05/30/23 15:03 Diphenhydramine Hcl 50 Mg/Ml Vial IVPUSH 05/30/23 14:45 25 mg ONCE ONE Administration Ketorolac Tromethamine 15 mg 05/30/23 14:44 05/30/23 15:03 Ketorolac Tromethamine 30 Mg/Ml Vial IVPUSH 05/30/23 14:45 15 mg ONCE ONE Administration Metoclopramide HCl 10 mg 05/30/23 14:44 05/30/23 15:03 Metoclopramide Hcl 10 Mg/2 Ml Vial IVPUSH 05/30/23 14:45 10 mg ONCE ONE Administration Ondansetron HCl 4 mg 05/30/23 14:44 05/30/23 15:03 Ondansetron Hcl 4 Mg/2 Ml Vial IVPUSH 05/30/23 14:45 4 mg ONCE ONE Administration Medical Decision Making Medical Decision Making MDM Narrative: 23-year-old male with history and clinical presentation consistent with cyclical vomiting secondary cannabis use, patient is afebrile and was recently tested for COVID-19 on 05/22 and at that time was negative. A concerns for intra-abdominal infection or urinary infection. I reviewed all investigations and hematologic indices are negative for leukocytosis or left shift, no anemia or thrombocytopenia. Chemistry indices are negative for BELLA and there is no electrolyte or liver enzyme abnormalities. Urinalysis is negative for UTI or hematuria and UDS confirms cannabis. I discussed all results with the patient at bedside and also discussed reducing the amount of cannabis use that he is engaged in an effort to control his cyclical vomiting. Patient is otherwise tolerating oral intake after receiving ketorolac/Benadryl/Reglan/Zofran. He is otherwise discharged home in stable condition. Differential Diagnosis Differential Diagnoses: The differential diagnosis associated with the presentation includes Please see the discussion above Admission/Observation Consideration of admission/observation: Escalation of care including admission/observation considered Please see the discussion above Lab Data MDM Lab Attestation statement: I reviewed the patient's lab results. Please see the discussion above 05/30/23 12:06 05/30/23 12:06 Labs: Lab Results 05/30/23 05/30/23 Range/Units 12:06 12:14 WBC 9.6 (4.8-10.8) X10*3/uL RBC 5.16 (4.60-5.80) X10*6/uL Hgb 15.8 (14.0-18.0) g/dl Hct 46.6 (42.0-52.0) % MCV 90.3 (80.0-98.0) fL MCH 30.6 (27.0-33.0) pg MCHC 33.9 (31.0-36.0) g/dl RDW 12.8 (11.0-16.0) % Plt Count 286 D (160-400) X10*3/uL MPV 10.9 (9.4-12.4) fL Immature Gran % (Auto) 0.5 H (0.0-0.4) % Neut % (Auto) 61.3 (45-73) % Lymph % (Auto) 24.5 (20-40) % [place] % (Auto) 7.7 (2-11) % Eos % (Auto) 5.1 H (0-4) % Baso % (Auto) 0.9 (0-2) % Lymph # (Auto) 2.3 (1.2-4.9) X10*3/uL [place] # (Auto) 0.7 (0.1-1.2) X10*3/uL Eos # (Auto) 0.5 H (0.0-0.4) X10*3/uL Baso # (Auto) 0.1 (0.0-0.2) X10*3/uL Abs Immat Gran (auto) 0.05 H (0.00-0.03) X10*3/uL Absolute Neuts (auto) 5.9 (2.0-8.3) x10*3/uL Absolute Nucleated RBC 0.000 (0.0-0.012) X10*3/uL Nucleated RBC % (auto) 0.0 (0.0-0.2) /100WBC Sodium 139 (135-145) mmol/L Potassium 4.4 (3.3-5.1) mmol/L Chloride 105 (96-108) mmol/L Carbon Dioxide 28 (22-29) mmol/L Anion Gap 10 L (12-20) BUN 9 (9-16) mg/dL Creatinine 0.79 (0.5-1.4) mg/dL Estim Creat Clear Calc 122.3 Estimated GFR > 60 Random Glucose 93 (60-115) mg/dL Calcium 9.9 (8.4-10.2) mg/dL Total Bilirubin 0.4 (0.0-1.0) mg/dL Direct Bilirubin 0.1 (0.0-0.5) mg/dL AST 30 (5-37) U/L ALT 25 (0-40) U/L Alkaline Phosphatase 53 (39-117) U/L Total Protein 7.4 (6.5-8.0) g/dL Albumin 4.6 (3.5-5.0) g/dL Lipase 62 (8-78) U/L Urine Color Yellow Urine Appearance Clear Urine pH 7.0 (5.0-9.0) Ur Specific [place] 1.020 (1.005-1.025) Urine Protein Negative (Neg-Trace) mg/dL Urine Glucose (UA) Negative (Negative) mg/dL Urine Ketones Negative (Negative) mg/dL Urine Blood Negative (Negative) Urine Nitrite Negative (Negative) Ur Leukocyte Esterase Negative (Negative) Urine Opiates Screen Not Detected (Not Detect) Urine Fentanyl Screen Not Detected (Not Detect) Ur Barbiturates Screen Not Detected (Not Detect) Ur Phencyclidine Scrn Not Detected (Not Detect) Ur Amphetamines Screen Not Detected (Not Detect) U Benzodiazepines Scrn Not Detected (Not Detect) Urine Cocaine Screen Not Detected (Not Detect) U Marijuana (THC) Screen POSITIVE H (Not Detect) Chronic Conditions Patient?s care impacted by: Other Cyclical vomiting Discharge Plan Discharge Clinical Impression: Cyclical vomiting, Cannabis use disorder Patient Disposition: Home, Self-Care Instructions: Cannabis Abuse (ED), Cyclic Vomiting Syndrome (ED) Additional Instructions: 1. Resume all home medications as prescribed. 2. Continue to hydrate especially with water. Attempts to scale back on your cannabis use to help control any nausea and vomiting that you are experiencing. Return to the ER for any worsening symptoms. Prescriptions: New ondansetron HCl 4 mg tablet 4 mg PO Q8H PRN (Reason: nausea and vomiting) 4 Days Qty: 10 0RF No Action prednisone 20 mg tablet 20 mg PO DAILY 7 Days Qty: 7 0RF ondansetron 4 mg tablet,disintegrating 4 mg PO Q8H 3 Days Qty: 9 0RF albuterol sulfate 2.5 mg /3 mL (0.083 %) solution for nebulization 2.5 mg inhalation Q4-6H PRN (Reason: shortness of breath or wheezing) Qty: 90 0RF prednisone 20 mg tablet 40 mg PO DAILY Qty: 10 0RF albuterol sulfate [ProAir HFA] 90 mcg/actuation HFA aerosol inhaler 2 puff inhalation Q4-6H PRN (Reason: shortness of breath or wheezing) Qty: 8.5 2RF
[2023-05-30 12:32] LABS: MANUAL DIFF FLAG NO
[2023-05-30 12:35] LABS: Basophils Absolute Auto 0.1 X10*3/uL (0.0-0.2); Basophils Percent Auto 0.9 % (0-2); Eosinophils Absolute Auto 0.5 X10*3/uL (0.0-0.4); Eosinophils Percent Auto 5.1 % (0-4); Hematocrit 46.6 % (42.0-52.0); Hemoglobin 15.8 g/dl (14.0-18.0); Imm Gran Abs Auto 0.05 X10*3/uL (0.00-0.03); Imm Gran Pct Auto 0.5 % (0.0-0.4); Lymphocytes Absolute Auto 2.3 X10*3/uL (1.2-4.9); Lymphocytes Percent Auto 24.5 % (20-40); Mean Corpuscular HGB Conc 33.9 g/dl (31.0-36.0); Mean Corpuscular Hemoglobin 30.6 pg (27.0-33.0); Mean Corpuscular Volume 90.3 fL (80.0-98.0); Mean Platelet Volume 10.9 fL (9.4-12.4); Monocytes Absolute Auto 0.7 X10*3/uL (0.1-1.2); Monocytes Percent Auto 7.7 % (2-11); Neutrophils Absolute Auto 5.9 x10*3/uL (2.0-8.3); Neutrophils Percent Auto 61.3 % (45-73); Platelet Count 286 X10*3/uL (160-400); Red Blood Count 5.16 X10*6/uL (4.60-5.80); Red Cell Distribution Width 12.8 % (11.0-16.0); White Blood Count 9.6 X10*3/uL (4.8-10.8)
[2023-05-30 12:37] LABS: Appearance Urine Clear; Color Urine Yellow; Glucose Urine UA Negative (Negative); Leukocyte Esterase Urine Negative (Negative); Nitrite Urine Negative (Negative); Urine Blood Negative (Negative); Urine Ketones Negative (Negative); Urine Protein Negative (Neg-Trace)
[2023-05-30 12:41] LABS: Amphetamine Screen Urine Not Detected (Not Detect); Barbiturates, Urine Not Detected (Not Detect); Benzodiazepines Screen Urine Not Detected (Not Detect); Cannabinoid Screen Urine POSITIVE (Not Detect); Cocaine Screen Urine Not Detected (Not Detect); Fentanyl, urine Not Detected (Not Detect); Opiate Screen Urine Not Detected (Not Detect); Phencyclidine Screen Urine Not Detected (Not Detect)
[2023-05-30 12:50] LABS: Alanine Aminotransferase 25 U/L (0-40); Albumin Level 4.6 g/dL (3.5-5.0); Alkaline Phosphatase 53 U/L (39-117); Anion Gap 10 (12-20); Aspartate Amino Transferase 30 U/L (5-37); Bilirubin Direct 0.1 mg/dL (0.0-0.5); Bilirubin Total 0.4 mg/dL (0.0-1.0); Blood Urea Nitrogen 9 mg/dL (9-16); Calcium 9.9 mg/dL (8.4-10.2); Carbon Dioxide 28 mmol/L (22-29); Chloride 105 mmol/L (96-108); Creatinine Clr Calc Pharmacy 122.3; Estimated Glomerular Filt Rate > 60; Glucose Random 93 mg/dL (60-115); Lipase 62 U/L (8-78); Potassium 4.4 mmol/L (3.3-5.1); Sodium 139 mmol/L (135-145); Total Protein 7.4 g/dL (6.5-8.0)
[2023-05-30 14:38] VITALS: BP 111/72; PULSE 63; RESP 16; TEMP 36.7; O2SAT 100
[2023-05-30] MEDS: Metoclopramide HCl 10 MG/2 ML VIAL IVPUSH (15:03)
[2023-05-30] MEDS: ondansetron HCL 4 MG/2 ML VIAL IVPUSH (15:03)
[2023-05-30] MEDS: Ketorolac Tromethamine 30 MG/ML VIAL 15 MG IVPUSH (15:03)
[2023-05-30] MEDS: diphenhydrAMINE HCL 50 MG/ML VIAL 25 MG IVPUSH (15:03)
--- NOTE | 2023-05-30 15:09 | PC.NURSE ---
20gIV placed in left AC w/o complications - medications administered per provider order. will reassess pain level shortly. call smith placed within reach.
--- NOTE | 2023-05-30 15:28 | PC.NURSE ---
PO CHALLENGE GIVEN
--- NOTE | 2023-05-30 15:41 | PC.NURSE ---
pt verbalized pain decreased post medication administration. pt provided w/ discharge paperwork.
== END 2023-05-30 15:42 | disposition home or self-care (01) ==
PROVIDERS: Physician Assistant; Emergency Provider Student in an Organized Health Care Education/Training Program
DX: F12.19 Cannabis abuse with unspecified cannabis-induced disorder (principal); R11.2 Nausea with vomiting, unspecified; R19.7 Diarrhea, unspecified; Z79.899 Other long term (current) drug therapy
CPT/HCPCS: 36415; 80048; 80076; 80307; 81003; 83690; 85025; 96374; 96375; 99284; J1200; J1885; J2405; J2765

== ENCOUNTER 2023-06-06 20:34 | Emergency (ER) | payer MEDICAID, SELFPAY ==
--- NOTE | ~2023-06-06 | XR_ITS ---
EXAMINATION: XR KNEE, LEFT CLINICAL INFORMATION: Fall off bed COMPARISON: None available. TECHNIQUE: AP, lateral, and both oblique views of the left knee. FINDINGS: No evidence of acute fracture or malalignment. Limited assessment of joint spaces in the absence of weightbearing views. No suprapatellar joint effusion. Soft tissues unremarkable. . XR/XR knee LT 3V IMPRESSION: Unremarkable left knee radiographs.
[2023-06-06 20:48] VITALS: BP 125/72; PULSE 100; RESP 18; TEMP 37.3; O2SAT 96; BMI 19.9
--- NOTE | 2023-06-06 20:49 | ED_ITS ---
HPI - Extremity Injury (Lower) General Chief Complaint: Extremity Injury, Lower Stated Complaint: LT knee injury Time Seen by Provider: 06/06/23 21:31 Source: patient Mode of arrival: ambulatory Limitations: no limitations History of Present Illness HPI Narrative: 23 yold male presents to the ED for left knee pain. patient states he hit knee on the edge of the bed when he jumped up thinking something fell unto his daughter. Patient denies any other trauma. Related Data Previous Rx's Medication Instructions Recorded ondansetron 4 mg disintegrating 4 mg PO Q8H 3 days #9 tabs 10/09/22 tablet prednisone 20 mg tablet 20 mg PO DAILY 7 days #7 tabs 10/09/22 albuterol sulfate 2.5 mg/3 mL 2.5 mg (3 mL) inhalation Q4-6H PRN 11/10/22 (0.083 %) solution for nebulization shortness of breath or wheezing #90 mL albuterol sulfate 90 mcg/actuation 2 puff inhalation Q4-6H PRN 11/10/22 aerosol inhaler (ProAir HFA) shortness of breath or wheezing #8.5 grams prednisone 20 mg tablet 40 mg (2 x 20 mg) PO DAILY #10 tabs 11/10/22 ondansetron HCl 4 mg tablet 4 mg PO Q8H PRN nausea and 05/30/23 vomiting 4 days #10 tabs naproxen 500 mg tablet 500 mg PO BID PRN pain 7 days #14 06/06/23 tabs Allergies Allergy/AdvReac Type Severity Reaction Status Date / Time Seasonal Allergies Allergy Nasal Verified 06/06/23 20:54 congestion Review of Systems 2 Review of Systems: left knee pain Yes all other systems are reviewed and are negative PMFSH Social History Social History Substance Use Type: Marijuana Advance Directives: No Advance Directives Information Provided: No Physical Exam 2 Vital Signs: Vital Signs: Last Vital Signs Temp 99.1 F 06/06/23 20:48 Pulse 100 06/06/23 20:48 Resp 18 06/06/23 20:48 BP 125/72 06/06/23 20:48 Pulse Ox 96 06/06/23 20:48 O2 Del Method Room Air 06/06/23 20:48 BMI result Body Mass Index 19.9 Const: General: cooperative, healthy appearing, comfortable, no acute distress, well developed, alert, awake and Physically active O rientation/consciousness: oriented to person, oriented to place, oriented to time and patient oriented x3 HEENT: Head: Yes normal to inspection, Yes No palpable skull fracture present, Yes normocephalic, Yes atraumatic and No abrasion Ears: hearing grossly normal bilaterally, external ears normal, TM's normal bilaterally, TM normal on the right, TM normal on the left, EAC's normal, mastoids normal and no periauricular adenopathy Throat: Yes posterior oropharynx normal, Yes tonsils normal and Yes uvula midline Eyes: General: appearance normal, both eyes and all related structures Neck: Neck: Yes normal visual inspection, Yes full ROM, Yes no lymphadenopathy, Yes no meningeal signs, Yes trachea midline, Yes supple, No anterior neck swelling and No tender Chest: Chest palpation & inspection: normal inspection of the chest and normal palpation of entire chest wall Resp: Effort & Inspection: normal respiratory effort and able to speak in complete sentences Auscultation: clear to auscultation bilaterally Cardio: Jugular venous distension: no JVD Heart sounds: S1 normal heart sound present and S2 normal heart sound present GI: Inspection: Yes normal to inspection and No abdominal wall ecchymosis P alpation (GI): Soft to palpation, not firm, nontender, no guarding and not rigid : General: No CVA tenderness and Yes no CVA tenderness Back/Spine/Pelvis: Back: no CVA tenderness, No CVA tenderness and No back tenderness Skin: General skin exam: no rashes or lesions noted, elasticity normal and turgor normal Neuro: General: oriented to person, oriented to place, oriented to time, patient oriented x3, gait normal, tone normal, moves all extremities, Normal light touch and pain sensation, no meningeal signs, no focal motor deficits, CN's II-XI intact bilaterally and normal sensation to monofilament Extrem: General: Yes normal to inspection, Yes full ROM and Yes capillary refill normal Knee images: 1. tenderness on palpation. positive for skin flap/avulsion. no sutures needed. Bleedin controlled. motor exam intact, but limited due to pain. neuro/vacular exam is intact. Psych: Appearance: grossly normal, well kempt and not disheveled Course Course Course Narrative: RME: 23yo M c/o L knee pain & injury s/p jumping out of bed [employer] after hearing and bang. Admits to hitting knee on dresser corner. Admits is UTD on vaccinations, but unknown last tetanus Ambulating w/lmping gait. R knee with avulsion/flap laceration-needs repair XRs ordered Full HPI, ROS and PE to be performed by primary ED provider. Medications Administered Discontinued Medications Generic Name Dose Route Start Last Admin Trade Name Ines PRN Reason Stop Dose Admin Ibuprofen 800 mg 06/06/23 21:53 06/06/23 22:21 Ibuprofen 800 Mg Tablet PO 06/06/23 21:54 800 mg ONCE ONE Administration Medical Decision Making Medical Decision Making MDM Narrative: 23 yold male presents to the ED for left knee pain/laceratoin after hitting knee on edge of bed. patient denies any other trauma. patient states uptodate with tetanus. Knee xray normal and negative for fracture. no laceration reparied needed for avlsion/flap. wound cleaned and wrapped. Differential Diagnosis Differential Diagnoses: The differential diagnosis associated with the presentation includes (knee fracture, knee disclocation, joint effusions, laceration) Admission/Observation Consideration of admission/observation: Escalation of care including admission/observation considered Independent Interpretation I performed an independent interpretation of an: Plain X-Ray Radiology Impression Discussion of test interpretation with radiology: I have reviewed the radiologist's reading. Independent Historian Clinical information obtained from an independent historian. History obtained from or confirmed by: Spouse External Record Review External record reviewed: Other (prior visits) Prescription Management I considered prescription management with: Pain Medication Discharge Plan Discharge Clinical Impression: Contusion of knee Patient Disposition: Home, Self-Care Instructions: Contusion in Adults (ED), Laceration Without Closure (ED) Additional Instructions: You will need follow-up with primary care provider. If pain does not improve you may need MRI. Return to ED for any swelling, redness, pus discharge, foul odor, severe pain, stiffness, or any other concerning symptoms. Prescriptions: New naproxen 500 mg tablet 500 mg PO BID PRN (Reason: pain) 7 Days Qty: 14 0RF No Action prednisone 20 mg tablet 20 mg PO DAILY 7 Days Qty: 7 0RF ondansetron 4 mg tablet,disintegrating 4 mg PO Q8H 3 Days Qty: 9 0RF albuterol sulfate 2.5 mg /3 mL (0.083 %) solution for nebulization 2.5 mg inhalation Q4-6H PRN (Reason: shortness of breath or wheezing) Qty: 90 0RF prednisone 20 mg tablet 40 mg PO DAILY Qty: 10 0RF albuterol sulfate [ProAir HFA] 90 mcg/actuation HFA aerosol inhaler 2 puff inhalation Q4-6H PRN (Reason: shortness of breath or wheezing) Qty: 8.5 2RF ondansetron HCl 4 mg tablet 4 mg PO Q8H PRN (Reason: nausea and vomiting) 4 Days Qty: 10 0RF Stand Alone Forms: Work/School Release Interventions: ED Discharge Assessment Last Done: 06/06/23 22:46 Discharge Date/Time: 06/06/23 22:46 Print Language: Prydeinig
[2023-06-06] MEDS: Ibuprofen 800 MG TABLET PO (22:21)
== END 2023-06-06 22:46 | disposition home or self-care (01) ==
PROVIDERS: Emergency Provider Emergency Medicine
DX: S80.02XA Contusion of left knee, initial encounter (principal); W22.09XA Striking against other stationary object, initial encounter; Y93.89 Activity, other specified; Y92.003 Bedroom of unspecified non-institutional (private) residence as the place of occurrence of the external cause; Y99.9 Unspecified external cause status; M25.562 Pain in left knee
CPT/HCPCS: 73562; 99283

== ENCOUNTER 2024-12-20 13:56 | Emergency (ER) | payer OTHER, SELFPAY ==
--- NOTE | ~2024-12-20 | CT_ITS ---
CLINICAL HISTORY: SOB, chest tightness, mass on R side CXR CT angiography chest with contrast. 3D Postprocessing. Comparison: CR/TN/SR - XR CHEST 2V - 12/20/24 14:19 EDT CR/SR - XR CHEST 1V - 11/09/22 22:05 EDT Findings: The heart is normal size. RV/LV ratio is normal. The thoracic aorta is normal caliber. No pulmonary artery filling defects. Enlarged right hilar lymph node, likely reactive. Visualized thyroid gland is within normal limits. Right upper lobe consolidation. No pleural effusion or pneumothorax. The visualized upper abdomen is unremarkable. The bones are intact. IMPRESSION: 1. Right upper lobe pneumonia. 2. No pulmonary embolus. This document has been electronically signed by: Guero Mcqueen MD on 12/20/2024 19:05:18
--- NOTE | ~2024-12-20 | XR_ITS ---
EXAMINATION: XR CHEST CLINICAL INFORMATION: R rib pain COMPARISON: 11/09/2022. TECHNIQUE: 2 views of the chest were obtained. FINDINGS: The cardiac, hilar, and mediastinal contours are normal. There is an oval masslike consolidation in the right upper lobe distribution measuring approximately 4.3 x 3.6 cm. The left lung is clear. There are no effusions. There is no pneumothorax. There is no focal osseous or soft tissue abnormality. XR/XR chest 2V IMPRESSION: 1. Oval masslike consolidation in the right upper lobe, most likely pneumonia in this age group although mass not excluded given the appearance. Recommend radiographic follow-up to ensure resolution after treatment. 2. No effusions. Electronically signed by: Flakito Way MD 12/20/2024 02:36 PM EDT
[2024-12-20 14:05] VITALS: BP 114/74; PULSE 92; RESP 18; TEMP 36.8; O2SAT 99; BMI 17.7
--- NOTE | 2024-12-20 14:05 | ED.CHESTPAIN ---
HPI - Chest Pain General Chief Complaint: General Medical Stated Complaint: R Rib Pain, Back Pain, Fever, Trouble Breathing Time Seen by Provider: 12/20/24 14:53 Source: patient Mode of arrival: ambulatory Limitations: no limitations History of Present Illness ED Provider: Osito Brannon PA-C HPI narrative: 24 yo male with PMHx of asthma presents to the ED due to 5 days of cough with green sputum and right-sided chest tightness. Patient states he began to feel ?sick? on Wednesday (12/15) with subjective fever, chills, sweats, nausea, cough with green sputum production. He states yesterday (12/19) he began to feel right-sided chest tightness that is exacerbated by deep inspiration and coughing. He reports that all of his symptoms have resolved with exception of the right-sided chest tightness and cough. He denies recent travel, or sick contacts. He denies chest pain, shortness of breath, hemoptysis, current nausea/vomiting, diarrhea, headache. MD complaint: chest discomfort Pertinent past history: asthma Onset (ago): day(s) () Timing of current episode: still present Prior episodes: No Pain location: right chest Pain radiation: none Severity: moderate Quality: tightness and sharp Relieving factors: rest Exacerbating factors: inspiration and other (cough) Associated symptoms: cough Treatment prior to arrival: none Related Data Previous Rx's ?Medication ?Instructions ?Recorded ondansetron 4 mg disintegrating 4 mg PO Q8H 3 days #9 tabs 10/09/22 tablet prednisone 20 mg tablet 20 mg PO DAILY 7 days #7 tabs 10/09/22 albuterol sulfate 2.5 mg/3 mL 2.5 mg (3 mL) inhalation Q4-6H PRN 11/10/22 (0.083 %) solution for nebulization shortness of breath or wheezing #90 mL albuterol sulfate 90 mcg/actuation 2 puff inhalation Q4-6H PRN 11/10/22 aerosol inhaler (ProAir HFA) shortness of breath or wheezing #8.5 grams prednisone 20 mg tablet 40 mg (2 x 20 mg) PO DAILY #10 tabs 11/10/22 ondansetron HCl 4 mg tablet 4 mg PO Q8H PRN nausea and 05/30/23 vomiting 4 days #10 tabs naproxen 500 mg tablet 500 mg PO BID PRN pain 7 days #14 06/06/23 tabs amoxicillin 875 mg-potassium 1 tab PO BID #20 tabs 12/20/24 clavulanate 125 mg tablet doxycycline hyclate 100 mg tablet 100 mg PO BID #20 tabs 12/20/24 Allergies Allergy/AdvReac Type Severity Reaction Status Date / Time Seasonal Allergies Allergy Nasal Verified 12/20/24 14:09 congestion Review of Systems Review of Systems: CONST: Positive for fever, body aches and chills. HENT: Negative for neck pain/stiffness, congestion, sore throat, swelling. Positive headache EYES: Negative for discharge/pain or vision changes. RESP: Positive for cough with green mucus production. Negaive for hemoptysis and shortness of breath. CV: Positive R chest tightness. Negative difficulty breathing, palpitations. ABD: Negative pain, nausea, vomiting. : Negative increase frequency, dysuria, blood in urine or stool. MUSC: Negative for muscle aches, edema. SKIN: Negative rash, lesions/sores. NEURO: Negative headache, dizziness, weakness. Yes all other systems are reviewed and are negative FORMERLY [facility], [facility] Past Medical History Attestation statement: The following information was validated with the patient. Source: old records reviewed and nursing notes reviewed Social History Social History Alcohol intake: former Smoked in Last 30 Days: No Substance Use Type: Marijuana Advance Directives: No Advance Directives Information Provided: No Do you have a plan to hurt others: No Plan Physical Exam Vital Signs: Vital Signs: Last Vital Signs Temp 99 F 12/20/24 19:45 Pulse 78 12/20/24 19:45 Resp 16 12/20/24 19:45 BP 111/65 12/20/24 19:45 Pulse Ox 97 12/20/24 19:45 O2 Del Method Room Air 12/20/24 19:45 BMI result Body Mass Index 17.7 Const: General: cooperative, healthy appearing, comfortable and no acute distress; No in distress or lethargic Nutritional Appearance: thin Orientation/consciousness: patient oriented x3 and No lethargic Limitations: no limitations HEENT: Head: Yes normal to inspection and Yes normocephalic Ears: hearing grossly normal bilaterally Face and sinus: Yes face symmetric Mouth: Normal oral and palatal mucosa present and moist mucous membranes Eyes: General: appearance normal, both eyes and all related structures Conjunctivae: conjunctivae normal Sclerae: sclerae normal Pupils: Equal, round and reactive pupils present EOM: EOMs intact bilaterally Neck: Neck: Yes normal visual inspection, Yes full ROM, Yes no lymphadenopathy, Yes no meningeal signs and Yes supple Chest: Chest palpation & inspection: normal inspection of the chest Resp: Effort & Inspection: normal respiratory effort, able to speak in complete sentences, no audible wheezes, no paradoxical thoraco-abdom movements, no respiratory distress, no retractions, no segmental paradox chest wall movement, no tracheal deviation, no tripod positioning, no use of accessory muscles, No prolonged expiratory phase and symmetric chest movement Auscultation: clear to auscultation bilaterally, no crackles, no rales, no rhonchi, no wheezes, breath sounds present and No rub present Cardio: Jugular venous distension: no JVD Rate: regular rate Rhythm: regular rhythm Heart sounds: S1 normal heart sound present and S2 normal heart sound present Back/Spine/Pelvis: Cervical Spine: cervical ROM normal Thoracic/Lumbar Spine: thoracic and lumbar spine normal to inspection Skin: General skin exam: no rashes or lesions noted Neuro: General: patient oriented x3 and no meningeal signs Cranial nerves: Yes Equal, round and reactive pupils present Extrem: General: Yes normal to inspection and Yes full ROM Course Course Course Narrative: This is a Rapid Medical Exam performed in triage by Hellen Black PA-C. Full HPI, ROS and PE to be performed by primary ED provider. 24 yo M presenting to the ED c/o fever, chills x few days, and right sided back/rib pain x last night worse w/deep breathing and coughing/moving. +SOB.denies pedal edema, travel, cigarette smoking or vaping PE: R upper back reproducible rib/MSK pain. Talking in complete sentences, nontoxic appearing. No CVAT Plan: EKG, labs, viral testing, UA, CXR Reevaluation(s) Reevaluation #1: 12/20/2024 DR. Wood's progress note: CTA of the chest shows no pulmonary embolism but you right upper lobe pneumonia likely community acquired, patient declined night sweat or weight loss, no recent travel out of the country, was born [place] TB is unfavorable diagnosis. Will start the patient on Augmentin and doxycycline. . VSS Time: 19:23 Medications Administered Discontinued Medications Generic Name Dose Route Start Last Admin Trade Name Ines PRN Reason Stop Dose Admin Amoxicillin/Clavulanate Potassium 875 mg 12/20/24 19:25 12/20/24 19:38 Amoxicillin/Potassium Clav 875 Mg Tablet PO 12/20/24 19:26 875 mg ONCE ONE Administration Doxycycline Monohydrate 100 mg 12/20/24 19:25 12/20/24 19:38 Doxycycline Monohydrate 100 Mg Capsule PO 12/20/24 19:26 100 mg ONCE ONE Administration Iohexol 100 ml 12/20/24 17:56 12/20/24 17:57 Iohexol 350 Mg/Ml 100 Ml Infus..Btl IV 12/20/24 17:57 65 ml ONCE ONE Administration Medical Decision Making Medical Decision Making MDM Narrative: 24 yo male with PMHx of asthma presents to the ED due to 5 days of cough with green sputum and right-sided chest tightness. VSS, in no acute distress, non toxic appearing. On physical exam lungs clear to auscultation B/L without diminished breath sounds, inspiratory or expiratory wheeze, no accessory muscle use, no cyanosis, tachypnea, or tachycardia. EKG without ST elevation/depression, or T-wave abnormalities, troponin WNL. Labs reveal increased WBC, otherwise unremarkable. Viral serology negative. Two-view chest x-ray reveals oval mass like consolidation in the right upper lobe most likely pneumonia, but mass is not excluded given the appearance. No pneumothorax, no effusion. Will order CTA to R/O PE and evaluate presence of mass on CXR. 17:20- T spot ordered to R/O TB, this is less likely as patient was born in the [place] and has not had recent travel. Still awaiting CTA results Patient signed out to my attending, Dr. Wood who will resume care. Differential Diagnosis Differential Diagnoses: The differential diagnosis associated with the presentation includes Pneumothorax Pulmonary embolism Pulmonary effusion Pneumonia Bronchitis Viral illness Admission/Observation Consideration of admission/observation: Escalation of care including admission/observation considered Lab Data [facility] Lab Attestation statement: I reviewed the patient's lab results. 12/20/24 14:33 12/20/24 14:32 Labs: Lab Results 12/20/24 12/20/24 Range/Units 14:32 14:33 WBC 11.7 H (4.8-10.8) X10*3/uL RBC 4.82 (4.60-5.80) X10*6/uL Hgb 14.8 (14.0-18.0) g/dl Hct 41.4 L (42.0-52.0) % MCV 85.9 (80.0-98.0) fL MCH 30.7 (27.0-33.0) pg MCHC 35.7 (31.0-36.0) g/dl RDW 12.0 (11.0-16.0) % Plt Count 284 (160-400) X10*3/uL MPV 9.7 (9.4-12.4) fL Immature Gran % (Auto) 0.4 (0.0-0.4) % Neut % (Auto) 75.4 H (45-73) % Lymph % (Auto) 15.2 L (20-40) % Geary % (Auto) 8.3 (2-11) % Eos % (Auto) 0.3 (0-4) % Baso % (Auto) 0.4 (0-2) % Lymph # (Auto) 1.8 (1.2-4.9) X10*3/uL Geary # (Auto) 1.0 (0.1-1.2) X10*3/uL Eos # (Auto) 0.0 (0.0-0.4) X10*3/uL Baso # (Auto) 0.1 (0.0-0.2) X10*3/uL Abs Immat Gran (auto) 0.05 H (0.00-0.03) X10*3/uL Absolute Neuts (auto) 8.8 H (2.0-8.3) x10*3/uL Absolute Nucleated RBC 0.000 (0.0-0.012) X10*3/uL Nucleated RBC % (auto) 0.0 (0.0-0.2) /100WBC PT 17.0 H (10.9-12.4) SEC INR 1.5 H (0.9-1.1) Sodium 136 (135-145) mmol/L Potassium 3.5 (3.3-5.1) mmol/L Chloride 99 (96-108) mmol/L Carbon Dioxide 28 (22-29) mmol/L Anion Gap 13 (12-20) BUN 8 L (9-16) mg/dL Creatinine 0.72 (0.5-1.4) mg/dL Estim Creat Clear Calc 123.0 Estimated GFR > 60 Random Glucose 81 (60-115) mg/dL Calcium 9.3 D (8.4-10.2) mg/dL Magnesium 2.0 (1.6-2.6) mg/dL Total Bilirubin 0.9 (0.0-1.0) mg/dL Direct Bilirubin 0.4 (0.0-0.5) mg/dL AST 44 H (5-37) U/L ALT 32 (0-40) U/L Alkaline Phosphatase 86 (39-117) U/L Troponin I High Sens < 2.7 (<3.5-35.0) ng/L Total Protein 8.2 H (6.5-8.0) g/dL Albumin 4.4 (3.5-5.0) g/dL Influenza Type A (PCR) NEGATIVE (Negative) Influenza Type B (PCR) NEGATIVE (Negative) RSV RNA Qual (PCR) NEGATIVE (Negative) SARS-CoV-2 RNA (RT-PCR) NEGATIVE (Negative) Attestation Attending Attestation: I was personally present and available for consultation in the ED and independently examined this patient and performed the components of the E&M independently. I have reviewed everything on the chart that is available and agree with the documentation provided by the MAG including discussion about the assessment, treatment plan and discussion. Based on medical record the care appears appropriate. Faustino Landrum MD [facility] Emergency Medicine Discharge Plan Discharge Clinical Impression: Pneumonia Patient Disposition: Home, Self-Care Instructions: Community Acquired Pneumonia (ED) Prescriptions: New amoxicillin-pot clavulanate 875-125 mg tablet 1 tab PO BID Qty: 20 0RF doxycycline hyclate 100 mg tablet 100 mg PO BID Qty: 20 0RF No Action prednisone 20 mg tablet 20 mg PO DAILY 7 Days Qty: 7 0RF ondansetron 4 mg tablet,disintegrating 4 mg PO Q8H 3 Days Qty: 9 0RF albuterol sulfate 2.5 mg /3 mL (0.083 %) solution for nebulization 2.5 mg inhalation Q4-6H PRN (Reason: shortness of breath or wheezing) Qty: 90 0RF prednisone 20 mg tablet 40 mg PO DAILY Qty: 10 0RF albuterol sulfate [ProAir HFA] 90 mcg/actuation HFA aerosol inhaler 2 puff inhalation Q4-6H PRN (Reason: shortness of breath or wheezing) Qty: 8.5 2RF ondansetron HCl 4 mg tablet 4 mg PO Q8H PRN (Reason: nausea and vomiting) 4 Days Qty: 10 0RF naproxen 500 mg tablet 500 mg PO BID PRN (Reason: pain) 7 Days Qty: 14 0RF Interventions: ED Discharge Assessment Last Done: 12/20/24 19:45 Discharge Date/Time: 12/20/24 19:46 Print Language: Arabic
--- NOTE | 2024-12-20 14:09 | ECG_ITS ---
Test Reason : CHEST PAIN Blood Pressure : */* mmHG Vent. Rate : 82 BPM Atrial Rate : 82 BPM P-R Int : 130 ms QRS Dur : 76 ms QT Int : 330 ms P-R-T Axes : 49 69 40 degrees QTcB Int : 385 ms Normal sinus rhythm Normal ECG When compared with ECG of 09-Oct-2022 13:04, No significant changes seen Referred By: Hellen Black Electronically Signed By: Williams Warner
[2024-12-20 14:37] LABS: MANUAL DIFF FLAG NO
[2024-12-20 14:39] LABS: Basophils Absolute Auto 0.1 X10*3/uL (0.0-0.2); Basophils Percent Auto 0.4 % (0-2); Eosinophils Percent Auto 0.3 % (0-4); Hematocrit 41.4 % (42.0-52.0); Hemoglobin 14.8 g/dl (14.0-18.0); Imm Gran Abs Auto 0.05 X10*3/uL (0.00-0.03); Imm Gran Pct Auto 0.4 % (0.0-0.4); Lymphocytes Absolute Auto 1.8 X10*3/uL (1.2-4.9); Lymphocytes Percent Auto 15.2 % (20-40); Mean Corpuscular HGB Conc 35.7 g/dl (31.0-36.0); Mean Corpuscular Hemoglobin 30.7 pg (27.0-33.0); Mean Corpuscular Volume 85.9 fL (80.0-98.0); Mean Platelet Volume 9.7 fL (9.4-12.4); Monocytes Percent Auto 8.3 % (2-11); Neutrophils Absolute Auto 8.8 x10*3/uL (2.0-8.3); Neutrophils Percent Auto 75.4 % (45-73); Platelet Count 284 X10*3/uL (160-400); Red Blood Count 4.82 X10*6/uL (4.60-5.80); White Blood Count 11.7 X10*3/uL (4.8-10.8)
[2024-12-20 14:45] LABS: INTERNATIONAL NORM RATIO 1.5 (0.9-1.1)
[2024-12-20 15:01] LABS: Alanine Aminotransferase 32 U/L (0-40); Albumin Level 4.4 g/dL (3.5-5.0); Alkaline Phosphatase 86 U/L (39-117); Anion Gap 13 (12-20); Aspartate Amino Transferase 44 U/L (5-37); Bilirubin Direct 0.4 mg/dL (0.0-0.5); Bilirubin Total 0.9 mg/dL (0.0-1.0); Blood Urea Nitrogen 8 mg/dL (9-16); Calcium 9.3 mg/dL (8.4-10.2); Carbon Dioxide 28 mmol/L (22-29); Chloride 99 mmol/L (96-108); Estimated Glomerular Filt Rate > 60; Glucose Random 81 mg/dL (60-115); Potassium 3.5 mmol/L (3.3-5.1); Sodium 136 mmol/L (135-145); Total Protein 8.2 g/dL (6.5-8.0)
[2024-12-20 15:06] LABS: Troponin-I High Sensitivity < 2.7 ng/L (<3.5-35.0)
[2024-12-20 15:14] LABS: Influenza A PCR NEGATIVE (Negative); Influenza B PCR NEGATIVE (Negative); Resp Syncy Virus RNA Qual PCR NEGATIVE (Negative); SARS COV2 PCR INHOUSE NEGATIVE (Negative)
--- OUTSIDE RECORDS SUMMARY | 2024-12-20 15:20 | XMS_ITS | Clinical Summary ---
Author Organization [facility] Address [address] [place] [address] Care Team Providers Care Administrative Appeals Tribunal Member Name Role Phone aR Escobar Primary Care Provider [phone] Source Comments PLEASE NOTE, if this patient is a minor, it may be UNLAWFUL to discuss sensitive information that is contained in these records (such as FAMILY PLANNING, MENTAL HEALTH or SUBSTANCE ABUSE) with the minor patient's parent or other person without the patient's specific authorization.[facility] Allergies Active Allergy Reactions Criticality Noted Date Comments Dust 10/05/2019 Grass Pollen 10/05/2019 Mold 10/05/2019 Pollen Extracts 10/05/2019 Medications albuterol sulfate (PROVENTIL) 2.5 mg /3 mL (0.083 %) nebulizer solutionIndicati ons:Mild intermittent asthma without complication (HHS-HCC) INHALE 1 VIAL BY NEB EVERY 4 HOURS NEEDED 0 Active loratadine (CLARITIN) 10 mg tabletIndication s:Seasonal allergic rhinitis due to pollen Take 10 mg by mouth 8 Active albuterol (PROVENTIL) 2.5 mg /3 mL (0.083 %) nebulizer solution Take 3 mL by nebulization every 4 (four) hours as needed for wheezing 3 mL 11 3 Active albuterol HFA (VENTOLIN HFA) 90 mcg/actuation inhalerIndicatio ns:Mild intermittent asthma without complication (HHS-HCC) Inhale 2 Puffs into the lungs every 4 (four) hours as needed for shortness of breath or wheezing 36 g 11 3 Active valACYclovir (VALTREX) 1 gram tabletIndication s:Angular cheilitis Take 1 Tablet by mouth 2 (two) times daily for 10 daysTake 1,000 mg by mouth 2 (two) times daily for 10 days 20 Tablet 1 4 Active valACYclovir (VALTREX) 1 gram tabletIndication s:Angular cheilitis,Cold sore Take 1 Tablet by mouth 2 (two) times daily 180 Tablet 3 4 025 Active nystatin (MYCOSTATIN) 100,000 unit/gram creamIndications :Angular cheilitis Apply topically 2 (two) times daily 15 g 1 4 Active acyclovir (ZOVIRAX) 5 % ointmentIndicati ons:Angular cheilitis,Cold sore Apply topically 2 (two) times daily 30 g 2 4 Active Active Problems Problem Noted Date Diagnosed Date Behavior problem in child 04/28/2013 Mild intermittent asthma without complication (H HS-HCC) 11/12/2009 Seasonal allergic rhinitis 11/12/2009 Immunizations Immunization Administration Dates Next Due DTAP (DAPTACEL),5 PERTUSSIS ANTIGENS ,04/11/2002,2001,05/12,2001 Flu, Multi Dose 0.5 ML 09/07/2014 Flu, Preservative Free 10/05/2019,2015,04/21/2016,04/17,04/28/2013 HEP B, PED/ADOL 2001,2001,2001 HPV 9 (Gardasil) 04/17/2015 HPV, QUADRIVALENT 09/07/2014,04/28/2013 Hep A, Ped/adol, 2 Dose 04/17/2015,09/07/2014 Hib (HbOC) 04/11/2002, 1,2001,03/10 INFLUENZA A (H1N1) VACCINE (CMS) 07/15/2009,10/2008 INFLUENZA, SEASONAL, INJECTABLE 07/15/2009,07/02,07/09/2005 IPV (IPOL) 12/24/2005, 1,2001,03/10 MENINGOCOCCAL MCV4P (MENACTRA) 09/02/2017,2017,02/25/2012 MMR (MMR II/Priorix) 12/24/2005,01/25/2002 PNEUMOCOCCAL CONJUGATE PCV 2 0 (Prevnar) 03/08/2023(Deferred: Out of Stock) PNEUMOCOCCAL CONJUGATE PCV 7 09/07/2002, 2001,2001,03/10 [facility] State Funded Flu Vaccine 05/26/2012, 010 TDAP 03/08/2023,02/25/2012 Varicella (Varivax), Live Vaccine 02/25/2012, Social History Tobacco Use Types Packs/Day Years Used Date Smoking Tobacco: Never Smokeless Tobacco: Never Tobacco Cessation:Counseling Given: Not Answered Alcohol Use Standard Drinks/Week Comments Yes 0 (1 standard drink = 0.6 oz pur e alcohol) Special occassion Social Connections Answer Date Recorded Connectedness 0 03/08/2023 Financial Resource Strain Answer Date R ecorded Financial Resource Strain 0 2022 Stress Answer Date Recorded Stress 0 03/08/2023 Physical Activity Answer Date Recorded Physical Activity 0 10/09/2019 Food Insecurity Answer Date Recorded Food 0 03/08/2023 Transportation Needs Answer Date Record ed Transportation 0 03/08/2023 Housing Stability Answer Date Recorded Housing 0 03/08/2023 Safety and Environment Answer Date Claudy rded Safety 0 03/08/2023 Utilities Answer Date Recorded Utilities 0 03/08/2023 Employment Answer Date Recorded Stress 0 10/09/2019 Sex and Gender Information Value Date Recorded Sex Assigned at Male 10/05/2019 11:34 AM PST Legal Sex Male 11:54 AM PST Gender Identity Male 10/05/2019 11:34 AM PST Sexual Orientation Straight 10/05/2019 11 :34 AM PST Occupation Industry Job Start Date Job End Date works at a [employer] Not on file Not on file Not o n file Last Filed Vital Signs Vital Sign Reading Time Taken Comments Blood Pressure 120/74 03/08/2023 3:58 PM EDT Pulse 88 03/08/2023 3:58 PM EDT Temperature 36.6 ??C (97.8 ??F) 03/08/2023 3:58 PM ED T Respiratory Rate 20 03/08/2023 3:58 PM EDT Oxygen Saturation 96% 03/08/2023 3:58 PM EDT Inhaled Oxygen Concentration - - Weight 59.9 kg (132 lb) 03/08/2023 3:58 PM EDT Height 170.2 cm (5' 7 ) 03/08/2023 3:58 PM EDT Body Mass Index 20.67 03/08/2023 3:58 PM EDT Plan of Treatment Health Maintenance Due Date Last Done Comments Anxiety Screening 2001 Imm-Pneumococcal (1 of 2 - PCV) 01/22/2020 09/07/2002, 2001, 2001, Additional history exists Tobacco Screening 03/04/2023 03/04/2022, 11/18/2021 Annual Wellness (Adult): Ind icated (All Coverage) 03/08/2024 03/08/2023 [id number] ( - season) 2024 Imm-Influenza (#1) 2024 10/05/2019, 0 04/21/2016, 04/21/2016, Additional history exists Alcohol and Drug Screen 08/02/2024 03/08/20 23, 03/08/2023, 11/18/2021, Additional history exists Depression Annual Screen 08/02/2024 03/08/2023, 10/31 Hypertension Screening (#1) 03/07/2026 Imm-DTaP/Tdap/Td (8 - Td or Tdap) 03/08/2033 03/08/2023, 02/25/2012, 12/24/2005, Additional history exists Imm-Hepatitis B Completed 2001, 04/2001, 2001 Imm-Varicella Completed 02/25/2012, 01/25/2002 Imm-HPV Completed 04/17/2015, 020 12/2014, 04/28/2013 HIV Screening Completed 03/04/2022 Hepatitis C Screening Completed 03/04/2022 Procedures Procedure Name Priority Date/Time Associated Diagnosis Comments HIV 1/2 AG & AB W/RFLX (4TH GEN) Routine 03/04/2022 3:28 PM EDT HEPATITIS C AB W/RFLX HCV RNA, QT, RT PCR Routine 03/04/2022 3:28 PM EDT from Last 3 Months or Most Recently Relevant to Health Maintenance Results * HEPATITIS C AB W/RFLX HCV RNA, QT, RT PCR (03/04/2022 3:28 PM EDT) HEPATITIS C ANTIBODY NON-REACT ALEX NON-REACT ALEX [facility] SIGNAL TO CUT-OFF 0.07 <1.00 Hem[facility] Comment: HCV antibody was non-reactive. There is no laboratory evidence of HCV infection. In most cases, no further action is required. However, if recent HCV exposure is suspected, a test for HCV RNA (test code 68891) is suggested. For additional information please refer to http://[employer]/faq/MQN09z9 (This link is being provided for informational/ educational purposes only.) 03/04/2022 3:28 PM EDT 03/04/2022 3:29 PM EDT [facility] - BLOOD DRAW Edited Result - Final [facility] [address] [address], [place] [address] [address] * HIV 1/2 AG & AB W/RFLX (4TH GEN) (03/04/2022 3:28 PM EDT) HIV AG/AB, 4TH GEN NON-REAC TIVE NON-REAC TIVE [facility] Comment: HIV-1 antigen and HIV-1/HIV-2 antibodies were not detected. There is no laboratory evidence of HIV infection. PLEASE NOTE: This information has been disclosed to you from records whose confidentiality may be protected by state law. ??If your state requires such protection, then the state law prohibits you from making any further disclosure of the information without the specific written consent of the person to whom it pertains, or as otherwise permitted by law. A general authorization for the release of medical or other information is NOT sufficient for this purpose. ?? For additional information please refer to http://education.[employer]/faq/IEW966 (This link is being provided for informational/ educational purposes only.) The performance of this assay has not been clinically validated in patients less than 2 years old. 03/04/2022 3:28 PM EDT 03/04/2022 3:29 PM EDT [facility] - BLOOD DRAW Final Result [facility] [address] [address], [facility] [address] [address] from Last 3 Months or Most Recently Relevant to Health Maintenance Insurance [facility] [employer] Care Teams Administrative Appeals Tribunal Member Relationship Specialty Start Date End Date Ra Escobar PA [address] [place] [address] PCP - General Internal Medicine 11/27/19
[2024-12-20 16:40] VITALS: BP 107/65; PULSE 73; RESP 22; TEMP 36.4; O2SAT 100
[2024-12-20] MEDS: iohexoL 350 MG/ML 100 ML INFUS..BTL IV (17:57)
[2024-12-20 19:05] VITALS: BP 111/65; PULSE 78; RESP 16; TEMP 37.2; O2SAT 97
[2024-12-20] MEDS: Amoxicillin/Potassium Clav 875 MG TABLET PO (19:38)
[2024-12-20] MEDS: Doxycycline Monohydrate 100 MG CAPSULE PO (19:38)
[2024-12-20 19:45] VITALS: BP 111/65; PULSE 78; RESP 16; TEMP 37.2; O2SAT 97
== END 2024-12-20 19:46 | disposition home or self-care (01) ==
PROVIDERS: Physician Assistant; Emergency Provider Emergency Medicine
DX: J18.9 Pneumonia, unspecified organism (principal); R07.89 Other chest pain; R05.9 Cough, unspecified; R50.9 Fever, unspecified; M54.50 Low back pain, unspecified; R06.02 Shortness of breath; Z03.818 Encounter for observation for suspected exposure to other biological agents ruled out
CPT/HCPCS: 0241U; 36415; 71046; 71275; 80048; 80076; 83735; 84484; 85025; 85610; 93005; 99284; Q9967

== ENCOUNTER → 2024-12-20 14:09 | Outpatient (BNV) | payer SELFPAY | PROVIDERS: Visit Provider Radiology Diagnostic Radiology | DX: J18.1 Lobar pneumonia, unspecified organism (principal); R07.81 Pleurodynia | CPT/HCPCS: 71046; 71275 ==

== ENCOUNTER → 2024-12-20 14:09 | Outpatient (BNV) | payer OTHER, SELFPAY | PROVIDERS: Emergency Provider Emergency Medicine; Visit Provider Internal Medicine Cardiovascular Disease | DX: R07.9 Chest pain, unspecified (principal) | CPT/HCPCS: 93010 ==

== ENCOUNTER 2025-05-11 18:31 | Emergency (ER) | payer OTHER, SELFPAY ==
[2025-05-11 18:35] VITALS: BP 129/71; BP 158/92; PULSE 127; PULSE 131; RESP 22; O2SAT 91; O2SAT 98; BMI 17.7
[2025-05-11 18:45] VITALS: PULSE 127; RESP 18; O2SAT 98
--- NOTE | 2025-05-11 18:45 | PC.NURSE ---
Pt reports that he smokes weed with tobacco mixed in, but he is done with that now.
[2025-05-11] MEDS: Albuterol Sulfate 7.5 MG, Albuterol Sulfate (0.083%) 2.5 MG 10 MG INHALE (18:47)
[2025-05-11 20:01] VITALS: BP 128/60; PULSE 108; RESP 20; TEMP 36.6; O2SAT 96
--- NOTE | 2025-05-11 20:20 | ED.GENADULT ---
HPI - General Adult General Chief complaint: Dyspnea Stated complaint: DIFFICULTY BREATHING ASTHMA Time Seen by Provider: 05/11/25 18:42 History of Present Illness ED Provider: Dr. Simpson HPI narrative: 25 y/o M patient; PMH asthma; presents from home via EMS with report of difficulty breathing that worsened today. The patient states he was smoking marijuana last night. He did not smoke as he felt this episode was going to come on. Mild non-productive cough. Otherwise denies: fever or chills, nausea/vomiting, abdominal pain, chest pain. EMS provided x1 DuoNeb during transport. Related Data Previous Rx's ?Medication ?Instructions ?Recorded ondansetron 4 mg disintegrating 4 mg PO Q8H 3 days #9 tabs 10/09/22 tablet prednisone 20 mg tablet 20 mg PO DAILY 7 days #7 tabs 10/09/22 albuterol sulfate 2.5 mg/3 mL 2.5 mg (3 mL) inhalation Q4-6H PRN 11/10/22 (0.083 %) solution for nebulization shortness of breath or wheezing #90 mL albuterol sulfate 90 mcg/actuation 2 puff inhalation Q4-6H PRN 11/10/22 aerosol inhaler (ProAir HFA) shortness of breath or wheezing #8.5 grams prednisone 20 mg tablet 40 mg (2 x 20 mg) PO DAILY #10 tabs 11/10/22 ondansetron HCl 4 mg tablet 4 mg PO Q8H PRN nausea and 05/30/23 vomiting 4 days #10 tabs naproxen 500 mg tablet 500 mg PO BID PRN pain 7 days #14 06/06/23 tabs amoxicillin 875 mg-potassium 1 tab PO BID #20 tabs 12/20/24 clavulanate 125 mg tablet doxycycline hyclate 100 mg tablet 100 mg PO BID #20 tabs 12/20/24 albuterol sulfate 90 mcg/actuation 2 puff inhalation .q4hr PRN 05/11/25 aerosol inhaler (Ventolin HFA) shortness of breath or wheezing #8.5 grams budesonide-formoterol HFA 160 2 puff inhalation BID #10.2 grams 05/11/25 mcg-4.5 mcg/actuation aerosol inhaler (Symbicort) prednisone 50 mg tablet 50 mg PO DAILY 4 days #4 tabs 05/11/25 Allergies Allergy/AdvReac Type Severity Reaction Status Date / Time Seasonal Allergies Allergy Nasal Verified 05/11/25 18:36 congestion Review of Systems Review of Systems: Yes all other systems are reviewed and are negative [facility] Past Medical History Attestation statement: The following information was validated with the patient. Source: old records reviewed Social History Social History Alcohol intake: former Smoked in Last 30 Days: Yes Use of substances other than those prescribed or required for medical reasons: Yes Substance Use Type: Marijuana Substance Use Frequency: Daily Advance Directives: No Advance Directives Information Provided: No Physical Exam ED Vital Signs: Vital Signs - 24 hr 05/11/25 18:35 05/11/25 18:45 05/11/25 20:01 Temperature 97.8 F Pulse Rate 127 H 127 H 108 H Respiratory Rate 22 H 18 20 Blood Pressure 129/71 128/60 Pulse Oximetry 98 96 Oxygen Delivery Method Aerosol Mask Room Air BMI result Body Mass Index 17.7 Patient is afebrile, tachycardic, normotensive, mildly tachypnic Const General: cooperative and no acute distress HENMT Head: Yes normal to inspection and Yes atraumatic Eyes General: appearance normal, both eyes and all related structures Pupils: Equal, round and reactive pupils present EOM: EOMs intact bilaterally Neck Neck: Yes normal visual inspection, Yes full ROM, Yes supple and No tender Chest Chest palpation & inspection: normal inspection of the chest and normal palpation of entire chest wall Resp Other: Mild non-productive cough Mild tachypnea Diffuse biphasic wheezing Good air movement bilaterally Effort & Inspection: able to speak in complete sentences Cardio Palpation: normal PMI Rate: regular rate Peripheral pulses: Peripheral pulses 2+ throughout GI Inspection: Yes normal to inspection, No Abdominal wall edema and No distended Palpation (GI): Soft to palpation, not firm, nontender, no guarding and not rigid Auscultation: normal bowel sounds Back/Spine/Pelvis Back: No back tenderness Neuro Cranial nerves: Yes Equal, round and reactive pupils present Course Course Course Narrative: Patient is afebrile, tachycardic, normotensive, mildly tachypnic. Started on ED bronchodilator protocol. Started on 1L IVF and 60mg Solu-Medrol. Will plan on period of observation. Will send rx for symbicort, albuterol inhaler, and prednisone. Will start patient on symbicort for maintenance. Patient states he has not used the spacer since he was a child. Discussed why the spacer is important. Patient provided the spacer and instructions in use. Discussed smoking cessation importance. Plan: Discharge to home with PCP follow up Return precautions given Medications Administered Discontinued Medications Generic Name Dose Route Start Last Admin Trade Name Freq PRN Reason Stop Dose Admin Albuterol Sulfate 7.5 mg/ 10 mg 05/11/25 18:45 05/11/25 18:47 Albuterol Sulfate 2.5 mg INHALE 05/11/25 18:46 10 mg ONCE ONE Administration Sodium Chloride 1,000 mls @ 999 mls/hr 05/11/25 19:00 05/11/25 19:43 Ns IV 05/11/25 20:00 999 mls/hr .Q1H1M DOMITILA Administration Methylprednisolone Sodium Succinate 60 mg 05/11/25 18:49 05/11/25 19:42 Methylprednisolone Sod Succ 125 Mg/2 Ml Vial IVPUSH 05/11/25 18:50 60 mg ONCE ONE Administration Discharge Plan Discharge Clinical Impression: Asthma with exacerbation Patient Disposition: Home, Self-Care Instructions: Asthma (DC) Additional Instructions: You were seen today for an asthma exacerbation. You received IV fluids, a breathing treatment (DuoNeb), and steroids IV. I have sent prescriptions for the albuterol inhaler (you also got a spacer which you should always use), the daily inhaler (Symbicort) which you should do 2 puffs morning and night every day, and a steroid which you should take once a day for the next 4 days. Please follow up with a primary doctor to discuss your recent emergency department visit and for a re-evaluation. Return to the emergency department for: Difficulty breathing Chest pain Passing out Please do try to cut back on your smoking as this is likely a trigger for your asthma. Prescriptions: New albuterol sulfate [Ventolin HFA] 90 mcg/actuation HFA aerosol inhaler 2 puff inhalation .q4hr PRN (Reason: shortness of breath or wheezing) Qty: 8.5 0RF prednisone 50 mg tablet 50 mg PO DAILY 4 Days Qty: 4 0RF budesonide-formoterol [Symbicort] 160-4.5 mcg/actuation HFA aerosol inhaler 2 puff inhalation BID Qty: 10.2 0RF No Action prednisone 20 mg tablet 20 mg PO DAILY 7 Days Qty: 7 0RF ondansetron 4 mg tablet,disintegrating 4 mg PO Q8H 3 Days Qty: 9 0RF albuterol sulfate 2.5 mg /3 mL (0.083 %) solution for nebulization 2.5 mg inhalation Q4-6H PRN (Reason: shortness of breath or wheezing) Qty: 90 0RF prednisone 20 mg tablet 40 mg PO DAILY Qty: 10 0RF albuterol sulfate [ProAir HFA] 90 mcg/actuation HFA aerosol inhaler 2 puff inhalation Q4-6H PRN (Reason: shortness of breath or wheezing) Qty: 8.5 2RF ondansetron HCl 4 mg tablet 4 mg PO Q8H PRN (Reason: nausea and vomiting) 4 Days Qty: 10 0RF naproxen 500 mg tablet 500 mg PO BID PRN (Reason: pain) 7 Days Qty: 14 0RF amoxicillin-pot clavulanate 875-125 mg tablet 1 tab PO BID Qty: 20 0RF doxycycline hyclate 100 mg tablet 100 mg PO BID Qty: 20 0RF Print Language: Maltese
[2025-05-11 21:13] VITALS: BP 128/60; PULSE 105; RESP 20; TEMP 36.6; O2SAT 96
[2025-05-11 21:50] LABS: Resp Syncy Virus RNA Qual PCR NEGATIVE (Negative); SARS COV2 PCR INHOUSE NEGATIVE (Negative)
== END 2025-05-11 21:20 | disposition home or self-care (01) ==
PROVIDERS: Emergency Provider Emergency Medicine; PCP Internal Medicine
DX: J45.901 Unspecified asthma with (acute) exacerbation (principal); R06.02 Shortness of breath; F12.90 Cannabis use, unspecified, uncomplicated; R05.9 Cough, unspecified; Z03.818 Encounter for observation for suspected exposure to other biological agents ruled out
CPT/HCPCS: 87637; 94640; 96361; 96374; 99284; 99285; J2919